=== PATIENT | male | born 1955 | race Caucasian/White ===

== ENCOUNTER 2023-02-16 17:25 | Inpatient (IN) ==
[2023-02-16] MEDS ORDERED: ONDANSETRON INJ 2 MG/ML 2 ML VIAL IV STA (17:53)
[2023-02-16] MEDS ORDERED: ONDANSETRON INJ 2 MG/ML 2 ML VIAL ONE (17:54)
[2023-02-16] MEDS ORDERED: SODIUM CHLORIDE 0.9% 1000ML 1,000 ML IV SCH (18:00)
[2023-02-16 18:40] LABS: Hematocrit (blood only) 48.5 % (42.0-52.0); Hemoglobin 17.3 g/dl (14.0-18.0); Mean Corpuscular Hemoglobin 32.3 pg (25.0-34.0); Mean Corpuscular Hgb Conc 35.7 g/dL (32.0-36.0); Mean Corpuscular Volume 90.5 fL (80.0-100.0); Mean Platelet Volume 10.1 fL (9.4-12.4); Platelet Count 89 K/uL (130-400); RDW Coefficient of Variation 11.9 % (11.5-14.5); RDW Standard Deviation 39.1 fL (36.4-46.3); Red Blood Count 5.36 M/uL (4.70-6.10); White Blood Count 19.95 K/ul (4.8-10.8)
[2023-02-16 18:49] LABS: Anion Gap 10 (3-11); BUN Creatinine Ratio 19.5 (10-20); Blood Urea Nitrogen 23 mg/dl (6-23); Calcium 9.9 mg/dl (8.5-10.1); Carbon Dioxide 24 mmol/L (21-32); Chloride 98 mmol/L (98-107); Creatinine Clr Calc Pharmacy 76.6 ml/min; Est GFR (African American) 74.6 ml/min; Est GFR (Non-African American) 64.4 ml/min; Glucose 160 mg/dl (70-99(Fasting)); Potassium 4.4 mmol/L (3.5-5.1); Sodium 132 mmol/L (136-145)
[2023-02-16 18:56] LABS: Basophils # (auto) 0.07 K/uL (0-0.2); Basophils % (auto) 0.4 %; Echinocytes 2+; Eosinophils # (auto) 0.01 K/uL (0-0.50); Eosinophils % (auto) 0.1 %; Lymphocytes # (auto) 0.42 K/uL (1.2-3.4); Lymphocytes % (auto) 2.1 %; Monocytes # (auto) 0.79 K/uL (0.11-0.59); Neutrophils # (auto) 17.46 K/uL (1.40-6.50); Neutrophils % (auto) 87.4 %; Polychromasia 1+; Tear Drop Cells 1+
[2023-02-16] MEDS ORDERED: SODIUM CHLORIDE 0.9% 1000ML 1,000 ML IV ONE (19:09)
[2023-02-16] MEDS ORDERED: FAMOTIDINE 20MG IV PUSH 20 MG/5 ML SYR IV STA (19:09)
[2023-02-16 19:21] LABS: Alanine Aminotransferase 109 U/L (7-52); Albumin Globulin Ratio 1.2 (0.9-2); Albumin Level 3.8 gm/dl (3.4-5.0); Alkaline Phosphatase 101 U/L (34-104); Aspartate Aminotransferase 62 U/L (13-39); Bilirubin,Total 1.5 mg/dl (0.2-1.0); Globulin 3.3 gm/dl (2.5-4.0); Lipase < 3 U/L (11-82); Total Protein 7.1 gm/dl (6.0-8.3)
[2023-02-16 19:49] LABS: Appearance Urine Cloudy (Clear); Bacteria Urine Automated Negative (Negative); Blood Urine Negative (Negative); Color Urine Orange; Epithelial Cell Urine Auto >30 /lpf (0-5); Glucose Urine UA Negative (Negative); Ketones Urine Trace (Negative); Leukocyte Esterase Urine Trace (Negative); Nitrite Urine Positive (Negative); Protein Urine 2+ (Negative); RBC Urine Automated 0-4 /hpf (0-4); Specific Gravity Urine 1.032 (1.000-1.030); Urobilinogen Urine Negative (Negative)
[2023-02-16] MEDS ORDERED: OPTIRAY 350 100ml IV ONE (19:51)
[2023-02-16 19:53] LABS: Bilirubin Urine 1+ (Negative)
[2023-02-16 20:04] LABS: Mucus Urine Present (None Prsent)
[2023-02-16 20:12] LABS: Magnesium 1.8 mg/dl (1.7-2.4)
[2023-02-16 20:32] LABS: Bilirubin Direct 0.3 mg/dl (0-0.2)
--- NOTE | 2023-02-16 21:07 | CT Scan Report ---
Exam(s): CT ABDOMEN + PELVIS With Contrast IV Amt: 84 ml optiray EXAM: CT Abdomen and Pelvis With Intravenous Contrast CLINICAL HISTORY: Reason for exam: abd pain, n/v. TECHNIQUE: Axial computed tomography images of the abdomen and pelvis with intravenous contrast. Automated exposure control was utilized for the study. A dose lowering technique was utilized adhering to the principles of ALARA. CONTRAST: Patient received 84 ml optiray of IV contrast COMPARISON: No relevant prior studies available. FINDINGS: Lung bases: Trace amount of subsegmental atelectasis in the right lung base. ABDOMEN: Liver: There is mild fatty infiltration of the liver. No focal liver lesion is seen. Gallbladder and bile ducts: The gallbladder is mildly dilated measuring 11 cm long axis with slight wall thickening and surrounding inflammation indicate acute cholecystitis. Pancreas: Unremarkable. No mass. No ductal dilation. Spleen: Unremarkable. No splenomegaly. Adrenals: Unremarkable. No mass. Kidneys and ureters: Simple 3 cm cyst extending off the lower pole of the left kidney. No follow-up is necessary. No hydronephrosis. Stomach and bowel: 6.5 cm of stool in the cecum suggesting mild constipation. The appendix is normal. There is diverticulosis of the left and sigmoid colon. No acute inflammatory changes are seen involving the bowel. No obstruction. No mucosal thickening. PELVIS: Appendix: See above. Bladder: The urinary bladder is mostly decompressed but otherwise unremarkable. Reproductive: Unremarkable as visualized. ABDOMEN and PELVIS: Intraperitoneal space: Unremarkable. No free air. No significant fluid collection. Bones/joints: Mild degenerative changes throughout the spine. No acute fracture or subluxation is seen. Soft tissues: Unremarkable. Vasculature: Unremarkable. No abdominal aortic aneurysm. Lymph nodes: Unremarkable. No enlarged lymph nodes. IMPRESSION: 1. The gallbladder is mildly dilated measuring 11 cm long axis with slight wall thickening and surrounding inflammation indicate acute cholecystitis. 2. 6.5 cm of stool in the cecum suggesting mild constipation. The appendix is normal. There is diverticulosis of the left and sigmoid colon. No acute inflammatory changes are seen involving the bowel. Electronically signed by: Misha Dey MD 02/16/23 21:06 PM
[2023-02-16] MEDS ORDERED: PIPERACILLIN/TAZOBACTAM 4.5 GM/120 ML BAG IV ONE (21:39)
--- NOTE | 2023-02-17 00:08 | Ultrasound Report ---
Exam(s): US GALLBLADDER EXAM: US Abdomen Limited, Gallbladder CLINICAL HISTORY: Reason for exam: abd pain eval ?cholecystitis. TECHNIQUE: Real-time ultrasound of the right upper quadrant with image documentation. COMPARISON: CT scan from February 16, 2023 FINDINGS: Liver: The liver measures 15.5 cm with mild fatty infiltration. No focal liver lesion is seen. Gallbladder: The gallbladder is mildly dilated measuring 10.4 cm long axis. There is mild wall thickening. No shadowing stones are identified. There is sludge dependently. Questionable gallstone in the gallbladder neck. Common bile duct: Obscured. Pancreas: The pancreas is mostly obscured. IMPRESSION: The gallbladder is mildly dilated measuring 10.4 cm long axis. There is mild wall thickening. No shadowing stones are identified. There is sludge dependently. Questionable gallstone in the gallbladder neck. Sonographic Mason sign could not be determined due to recent pain medication administration. Electronically signed by: Misha Dey MD 02/17/23 00:07 AM
--- NOTE | 2023-02-17 01:28 | Emergency Department Note ---
Impression & Plan Acute upper abdominal pain, Intractable nausea and vomiting, Leukocytosis, Transaminitis, Thrombocytopenia ED Provider Note NAME: [facility] AGE: 67 SEX: M ARRIVES VIA: Walk-In INFORMANT: Patient ED PROVIDER(S): Roland Seymour MD CHIEF COMPLAINT: Abdominal pain, n/v PLAN: Disposition: Admit MEDICAL DECISION MAKING: The patient is a pleasant 67-year-old gentleman with a past medical history of hypertension who presents emerged department via walk-in accompanied by his for evaluation of continued upper abdominal pain with nausea and vomiting unable to tolerate oral intake which began on Thursday. The patient reports having fevers over the past couple of days but then feels that these have dissipated and has not had a fever today. He denies any cough, congestion. He reports he has been moving his bowels normally. He denies any urinary symptoms. On arrival the patient is uncomfortable but no acute distress, afebrile with heart rate initially in the 120s but improved with IV fluids and blood pressure and vital signs otherwise stable. He appears clinically dry. He has mild upper/right upper quadrant tenderness without guarding or rebound. WBC 19.9K with neutrophil predominance and left shift. H/H 17.3/40.5 without prior values for comparison. Platelets 89K without prior values for comparison. Chemistry without metabolic acidosis. Lactic acid 1.6, within normal limits. LFTs are mildly elevated without prior values for comparison with borderline pattern for obstruction though not specific with total bilirubin 1.5, direct bilirubin 0.3, AST 62, ALT 109. However alk phos is 101. Lipase not elevated. Procalcitonin is elevated at 16.1. UA with positive nitrites but with epithelial cells present and no bacteria. COVID-19 RNA, SOBEIDA test was negative. Tickborne illness testing ordered for completeness given transaminitis and t hrombocytopenia and Lyme screen was negative. Anaplasma and Babesia smear negative. DNA test pending. CT of the abdomen pelvis was performed and demonstrates mildly dilated gallbladder with gallbladder wall thickening and pericholecystic inflammation suggestive of cholecystitis. No gallstones CT are noted. Formal gallbladder ultrasound was ordered to further characterize CT findings. Blood cultures were obtained and antibiotics ordered with IV Zosyn. Case was discussed with general surgery on-call, Dr. Jay who agrees with plan for IV antibiotics and n.p.o. and they will evaluate the patient in the morning. Case was additionally discussed with GI on-call, Dr. Hassan also concurs. [facility] for [facility]. Gallbladder ultrasound subsequently demonstrates mildly dilated gallbladder measuring 10.4 cm in long axis with mild wall thickening. No shadowing stones are seen. Sludge is present dependently with question of gallstone in the gallbladder neck though negative Mason sign. Triage Nursing notes reviewed and agree them. Prior/outside medical records reviewed Vital Signs: reviewed Differential diagnosis: Gastroenteritis, food borne illness, infections, appendicitis, diverticulitis, inflammatory bowel disease, obstruction, GI bleed, biliary pathology, volvulus, as well as other pathologies. ER treatment provided: See below. Diagnostics interpreted by me: ECG: Sinus tachycardia, 119 bpm, no ectopy, no overt ST elevation or depression, QTc 430, QRS 60. Cardiac Monitoring: An order for continuous cardiac monitoring was placed and demonstrated sinus tachycardia, 119 bpm, no ectopy. Laboratory studies: See below Imaging studies: See below Consultation(s): Dr. Jay, General surgery on-call. Dr. Hassan, GI on-call Dr. Almeida, [facility] HPI: The patient is a pleasant 67-year-old gentleman with a past medical history of hypertension who presents emerged department via walk-in accompanied by his for evaluation of continued upper abdominal pain with nausea and vomiting unable to tolerate oral intake which began on Thursday. The patient reports having fevers over the past couple of days but then feels that these have dissipated and has not had a fever today. He denies any cough, congestion. He reports he has been moving his bowels normally. He denies any urinary symptoms. ROS: See above HPI for pertinent positives & negatives. A total of 10 systems reviewed and were otherwise negative. VITALS:See Below PHYSICAL EXAMINATION: GENERAL: Awake, alert, uncomfortable-appearing, in no distress HENT: Normocephalic, atraumatic. Oropharynx with dry mucous membranes and otherwise unremarkable. EYES: Normal conjunctiva. Sclera non-icteric. NECK: Supple. No nuchal rigidity. FROM. No JVD. RESPIRATORY: Clear to auscultation. CARDIAC: Regular rate, normal rhythm. Extremities warm and well perfused. Pulses equal. ABDOMEN: Soft, non-distended. Mild upper/right upper quadrant tenderness without guarding or rebound. RECTAL: Deferred. MUSCULOSKELETAL: Chest examination reveals no tenderness. The back is symmetric al on inspection without obvious abnormality. There is no CVA tenderness to palpation. No joint edema. LOWER EXTREMITIES: Calves are equal size bilaterally and non-tender. No edema. No discoloration. NEURO: Normal sensorium. No sensory or motor deficits noted. SKIN: No rash or jaundice noted. Roland Seymour MD Past Med/Surg History Medical History (Reviewed 02/17/23 @ 01: by Roland Seymour MD) Hypertension Family History (Reviewed 02/17/23 @ 01: by Roland Seymour MD) Other Family history non-contributory Social History (Reviewed 02/17/23 @ : by Roland Seymour MD) Smoking Status: Never smoker Feels Safe at Home: Yes Allergies Allergies Allergy/AdvReac Type Severity Reaction Status Date / Time No Known Allergies Allergy Unverified 02/17/23 02:53 Home Meds Home Medications Medication Instructions Recorded Confirmed lisinopril 10 mg tablet 10 mg PO DAILY 02/16/23 02/16/23 Results & Data (ED) Vital Signs Vital Signs - 24 hr 02/16/23 17:32 02/16/23 19:18 02/16/23 20:48 Temperature 36.5 C Temperature Source Temporal Artery Scan Pulse Rate 128 H Pulse Rate [Right Finger] 121 H 111 H Respiratory Rate 20 20 20 Respiratory Effort / Characteristics Non-Labored Non-Labored Respiratory Depth Normal Normal Blood Pressure 108/73 Blood Pressure [Right Arm] 139/101 H 152/86 H Blood Pressure Mean 84 Blood Pressure Mean [Right Arm] 113 108 Pulse Oximetry 97 98 97 Oxygen Delivery Method Room Air Room Air Room Air Sepsis Recent Fever Within 48 Hours No Sepsis New/Unexplained Change in Mental Status N/A Sepsis Action Taken by Nursing No Action Required 02/16/23 21:19 02/17/23 00:45 02/16/23 20:30 Temperature Temperature Source Pulse Rate 97 H Pulse Rate [Right Finger] 112 H 100 H Respiratory Rate 20 20 Respiratory Effort / Characteristics Non-Labored Non-Labored Respiratory Depth Normal Normal Blood Pressure Blood Pressure [Right Arm] 130/77 138/82 Blood Pressure Mean Blood Pressure Mean [Right Arm] 94 100 Pulse Oximetry 97 95 Oxygen Delivery Method Room Air Room Air Sepsis Recent Fever Within 48 Hours Sepsis New/Unexplained Change in Mental Status Sepsis Action Taken by Nursing 02/17/23 02:21 02/17/23 03:41 Temperature Temperature Source Pulse Rate Pulse Rate [Right Finger] 105 H 94 H Respiratory Rate 20 19 Respiratory Effort / Characteristics Non-Labored Respiratory Depth Normal Blood Pressure Blood Pressure [Right Arm] 114/71 109/73 Blood Pressure Mean Blood Pressure Mean [Right Arm] 85 85 Pulse Oximetry 97 95 Oxygen Delivery Method Room Air Room Air Sepsis Recent Fever Within 48 Hours Sepsis New/Unexplained Change in Mental Status Sepsis Action Taken by Nursing Laboratory Data Attestation: I reviewed the patient's lab results. 02/16/23 17:54 02/16/23 17:54 Lab Results 02/16/23 02/16/23 02/16/23 Range/Units 17:54 17:54 17:54 WBC 19.95 H (4.8-10.8) K/ul RBC 5.36 (4.70-6.10) M/uL Hgb 17.3 (14.0-18.0) g/dl Hct 48.5 (42.0-52.0) % MCV 90.5 (80.0-100.0) fL MCH 32.3 (25.0-34.0) pg MCHC 35.7 (32.0-36.0) g/dL RDW Std Deviation 39.1 (36.4-46.3) fL RDW Coeff of Ann-Marie 11.9 (11.5-14.5) % Plt Count 89 L (130-400) K/uL MPV 10.1 (9.4-12.4) fL Immature Gran % (Auto) 6.0 % Neut % (Auto) 87.4 % Lymph % (Auto) 2.1 % [place] % (Auto) 4.0 % Eos % (Auto) 0.1 % Baso % (Auto) 0.4 % Neut # (Auto) 17.46 H (1.40-6.50) K/uL Lymph # (Auto) 0.42 L (1.2-3.4) K/uL [place] # (Auto) 0.79 H (0.11-0.59) K/uL Eos # (Auto) 0.01 (0-0.50) K/uL Baso # (Auto) 0.07 (0-0.2) K/uL Immature Gran # (Auto) 1.20 H (0.01-0.20) K/uL Polychromasia 1+ Tear Drop Cells 1+ Echinocytes 2+ Sodium 132 L (136-145) mmol/L Potassium 4.4 (3.5-5.1) mmol/L Chloride 98 (98-107) mmol/L Carbon Dioxide 24 (21-32) mmol/L Anion Gap 10 (3-11) BUN 23 (6-23) mg/dl Creatinine 1.18 (0.6-1.4) mg/dl Est Cr Clr Drug Dosing 76.6 ml/min Est GFR ( Amer) 74.6 ml/min Est GFR (Non-Af Amer) 64.4 ml/min BUN/Creatinine Ratio 19.5 (10-20) Glucose 160 H (70-99(Fasting)) mg/dl Lactate (0.4-2.0) mmol/L Calcium 9.9 (8.5-10.1) mg/dl Magnesium (1.7-2.4) mg/dl Total Bilirubin 1.5 H (0.2-1.0) mg/dl Direct Bilirubin (0-0.2) mg/dl AST 62 H (13-39) U/L ALT 109 H (7-52) U/L Alkaline Phosphatase 101 (34-104) U/L Total Protein 7.1 (6.0-8.3) gm/dl Albumin 3.8 (3.4-5.0) gm/dl Globulin 3.3 (2.5-4.0) gm/dl Albumin/Globulin Ratio 1.2 (0.9-2) Lipase < 3 L (11-82) U/L Procalcitonin 16.14 H (0-0.5) ng/ml Urine Color Urine Appearance (Clear) Urine pH (4.5-7.5) Ur Specific [place] (1.000-1.030) Urine Protein (Negative) Urine Glucose (UA) (Negative) Urine Ketones (Negative) Urine Blood (Negative) Urine Nitrite (Negative) Urine Bilirubin (Negative) Urine Urobilinogen (Negative) Ur Leukocyte Esterase (Negative) Urine WBC (Auto) (0-5) /hpf Urine RBC (Auto) (0-4) /hpf U Hyaline Cast (Auto) (0-5) /lpf U Epithel Cells (Auto) (0-5) /lpf Urine Bacteria (Auto) (Negative) Granular Casts (0) /lpf Urine Mucus (None Prsent) Anaplasma Smear Babesia Smear Lyme Disease IgG Ab (Negative) Lyme Disease IgM Ab (Negative) SARS-CoV-2, RNA, NAAT (NEGATIVE) 02/16/23 02/16/23 02/16/23 Range/Units 19:23 19:25 19:26 WBC (4.8-10.8) K/ul RBC (4.70-6.10) M/uL Hgb (14.0-18.0) g/dl Hct (42.0-52.0) % MCV (80.0-100.0) fL MCH (25.0-34.0) pg MCHC (32.0-36.0) g/dL RDW Std Deviation (36.4-46.3) fL RDW Coeff of Ann-Marie (11.5-14.5) % Plt Count (130-400) K/uL MPV (9.4-12.4) fL Immature Gran % (Auto) % Neut % (Auto) % Lymph % (Auto) % [place] % (Auto) % Eos % (Auto) % Baso % (Auto) % Neut # (Auto) (1.40-6.50) K/uL Lymph # (Auto) (1.2-3.4) K/uL [place] # (Auto) (0.11-0.59) K/uL Eos # (Auto) (0-0.50) K/uL Baso # (Auto) (0-0.2) K/uL Immature Gran # (Auto) (0.01-0.20) K/uL Polychromasia Tear Drop Cells Echinocytes Sodium (136-145) mmol/L Potassium (3.5-5.1) mmol/L Chloride (98-107) mmol/L Carbon Dioxide (21-32) mmol/L Anion Gap (3-11) BUN (6-23) mg/dl Creatinine (0.6-1.4) mg/dl Est Cr Clr Drug Dosing ml/min Est GFR ( Amer) ml/min Est GFR (Non-Af Amer) ml/min BUN/Creatinine Ratio (10-20) Glucose (70-99(Fasting)) mg/dl Lactate (0.4-2.0) mmol/L Calcium (8.5-10.1) mg/dl Magnesium 1.8 (1.7-2.4) mg/dl Total Bilirubin (0.2-1.0) mg/dl Direct Bilirubin 0.3 H (0-0.2) mg/dl AST (13-39) U/L ALT (7-52) U/L Alkaline Phosphatase (34-104) U/L Total Protein (6.0-8.3) gm/dl Albumin (3.4-5.0) gm/dl Globulin (2.5-4.0) gm/dl Albumin/Globulin Ratio (0.9-2) Lipase (11-82) U/L Procalcitonin (0-0.5) ng/ml Urine Color [place] Urine Appearance Cloudy A (Clear) Urine pH 5.0 (4.5-7.5) Ur Specific [place] 1.032 H (1.000-1.030) Urine Protein 2+ H (Negative) Urine Glucose (UA) Negative (Negative) Urine Ketones Trace H (Negative) Urine Blood Negative (Negative) Urine Nitrite Positive A (Negative) Urine Bilirubin 1+ H (Negative) Urine Urobilinogen Negative (Negative) Ur Leukocyte Esterase Trace H (Negative) Urine WBC (Auto) 1-5 (0-5) /hpf Urine RBC (Auto) 0-4 (0-4) /hpf U Hyaline Cast (Auto) 1-5 (0-5) /lpf U Epithel Cells (Auto) >30 H (0-5) /lpf Urine Bacteria (Auto) Negative (Negative) Granular Casts 1-5 H (0) /lpf Urine Mucus Present A (None Prsent) Anaplasma Smear Babesia Smear Lyme Disease IgG Ab (Negative) Lyme Disease IgM Ab (Negative) SARS-CoV-2, RNA, NAAT NEGATIVE (NEGATIVE) 02/16/23 02/16/23 02/16/23 Range/Units 20:02 21:53 21:53 WBC (4.8-10.8) K/ul RBC (4.70-6.10) M/uL Hgb (14.0-18.0) g/dl Hct (42.0-52.0) % MCV (80.0-100.0) fL MCH (25.0-34.0) pg MCHC (32.0-36.0) g/dL RDW Std Deviation (36.4-46.3) fL RDW Coeff of Ann-Marie (11.5-14.5) % Plt Count (130-400) K/uL MPV (9.4-12.4) fL Immature Gran % (Auto) % Neut % (Auto) % Lymph % (Auto) % [place] % (Auto) % Eos % (Auto) % Baso % (Auto) % Neut # (Auto) (1.40-6.50) K/uL Lymph # (Auto) (1.2-3.4) K/uL [place] # (Auto) (0.11-0.59) K/uL Eos # (Auto) (0-0.50) K/uL Baso # (Auto) (0-0.2) K/uL Immature Gran # (Auto) (0.01-0.20) K/uL Polychromasia Tear Drop Cells Echinocytes Sodium (136-145) mmol/L Potassium (3.5-5.1) mmol/L Chloride (98-107) mmol/L Carbon Dioxide (21-32) mmol/L Anion Gap (3-11) BUN (6-23) mg/dl Creatinine (0.6-1.4) mg/dl Est Cr Clr Drug Dosing ml/min Est GFR ( Amer) ml/min Est GFR (Non-Af Amer) ml/min BUN/Creatinine Ratio (10-20) Glucose (70-99(Fasting)) mg/dl Lactate 1.6 (0.4-2.0) mmol/L Calcium (8.5-10.1) mg/dl Magnesium (1.7-2.4) mg/dl Total Bilirubin (0.2-1.0) mg/dl Direct Bilirubin Cancelled (0-0.2) mg/dl AST (13-39) U/L ALT (7-52) U/L Alkaline Phosphatase (34-104) U/L Total Protein (6.0-8.3) gm/dl Albumin (3.4-5.0) gm/dl Globulin (2.5-4.0) gm/dl Albumin/Globulin Ratio (0.9-2) Lipase (11-82) U/L Procalcitonin (0-0.5) ng/ml Urine Color Urine Appearance (Clear) Urine pH (4.5-7.5) Ur Specific [place] (1.000-1.030) Urine Protein (Negative) Urine Glucose (UA) (Negative) Urine Ketones (Negative) Urine Blood (Negative) Urine Nitrite (Negative) Urine Bilirubin (Negative) Urine Urobilinogen (Negative) Ur Leukocyte Esterase (Negative) Urine WBC (Auto) (0-5) /hpf Urine RBC (Auto) (0-4) /hpf U Hyaline Cast (Auto) (0-5) /lpf U Epithel Cells (Auto) (0-5) /lpf Urine Bacteria (Auto) (Negative) Granular Casts (0) /lpf Urine Mucus (None Prsent) Anaplasma Smear See Comment Babesia Smear See Comment Lyme Disease IgG Ab (Negative) Lyme Disease IgM Ab (Negative) SARS-CoV-2, RNA, NAAT (NEGATIVE) 02/16/23 Range/Units 21:53 WBC (4.8-10.8) K/ul RBC (4.70-6.10) M/uL Hgb (14.0-18.0) g/dl Hct (42.0-52.0) % MCV (80.0-100.0) fL MCH (25.0-34.0) pg MCHC (32.0-36.0) g/dL RDW Std Deviation (36.4-46.3) fL RDW Coeff of Ann-Marie (11.5-14.5) % Plt Count (130-400) K/uL MPV (9.4-12.4) fL Immature Gran % (Auto) % Neut % (Auto) % Lymph % (Auto) % [place] % (Auto) % Eos % (Auto) % Baso % (Auto) % Neut # (Auto) (1.40-6.50) K/uL Lymph # (Auto) (1.2-3.4) K/uL [place] # (Auto) (0.11-0.59) K/uL Eos # (Auto) (0-0.50) K/uL Baso # (Auto) (0-0.2) K/uL Immature Gran # (Auto) (0.01-0.20) K/uL Polychromasia Tear Drop Cells Echinocytes Sodium (136-145) mmol/L Potassium (3.5-5.1) mmol/L Chloride (98-107) mmol/L Carbon Dioxide (21-32) mmol/L Anion Gap (3-11) BUN (6-23) mg/dl Creatinine (0.6-1.4) mg/dl Est Cr Clr Drug Dosing ml/min Est GFR ( Amer) ml/min Est GFR (Non-Af Amer) ml/min BUN/Creatinine Ratio (10-20) Glucose (70-99(Fasting)) mg/dl Lactate (0.4-2.0) mmol/L Calcium (8.5-10.1) mg/dl Magnesium (1.7-2.4) mg/dl Total Bilirubin (0.2-1.0) mg/dl Direct Bilirubin (0-0.2) mg/dl AST (13-39) U/L ALT (7-52) U/L Alkaline Phosphatase (34-104) U/L Total Protein (6.0-8.3) gm/dl Albumin (3.4-5.0) gm/dl Globulin (2.5-4.0) gm/dl Albumin/Globulin Ratio (0.9-2) Lipase (11-82) U/L Procalcitonin (0-0.5) ng/ml Urine Color Urine Appearance (Clear) Urine pH (4.5-7.5) Ur Specific [place] (1.000-1.030) Urine Protein (Negative) Urine Glucose (UA) (Negative) Urine Ketones (Negative) Urine Blood (Negative) Urine Nitrite (Negative) Urine Bilirubin (Negative) Urine Urobilinogen (Negative) Ur Leukocyte Esterase (Negative) Urine WBC (Auto) (0-5) /hpf Urine RBC (Auto) (0-4) /hpf U Hyaline Cast (Auto) (0-5) /lpf U Epithel Cells (Auto) (0-5) /lpf Urine Bacteria (Auto) (Negative) Granular Casts (0) /lpf Urine Mucus (None Prsent) Anaplasma Smear Babesia Smear Lyme Disease IgG Ab Negative (Negative) Lyme Disease IgM Ab Negative (Negative) SARS-CoV-2, RNA, NAAT (NEGATIVE) Administered Medications Dextrose/Sodium Chloride (D5w And Nss) 1,000 mls @ 125 mls/hr IV .Q8H CLARI Stop: 03/19/23 02:29 Last Admin: 02/17/23 02:53 Dose: 125 mls/hr Documented By: BARBRA Discontinued Medications Hydromorphone HCl (Hydromorphone Inj 0.5 Mg/0.5 Ml Syr) 0.5 mg IV NOW STA Stop: 02/17/23 02:29 Last Admin: 02/17/23 03:40 Dose: Not Given Documented By: SAES Hydromorphone HCl (Hydromorphone Inj 0.5 Mg/0.5 Ml Syr) Confirm Administered Dose 0.5 mg .ROUTE .STK-MED ONE Stop: 02/17/23 02:40 Last Admin: 02/17/23 02:40 Dose: 0.5 mg Documented By: BARBRA Sodium Chloride (Nss 1000ml) 1,000 mls @ 999 mls/hr IV .Q1H1M CLARI Stop: 02/16/23 19:00 Last Infusion: 02/16/23 19:11 Dose: 0 mls/hr Documented By: Admin: 02/16/23 17:55 Dose: 999 mls/hr Documented By: MMZ Famotidine (Pepcid 20mg Iv Push) 20 mg in 5 mls @ 2.5 mls/min IV NOW STA Stop: 02/16/23 19:10 Last Admin: 02/16/23 19:16 Dose: 2.5 mls/min Documented By: BARBRA Sodium Chloride (Nss 1000ml) 1,000 mls @ 999 mls/hr IV .Q1H1M ONE Stop: 02/16/23 20:09 Last Infusion: 02/16/23 20:23 Dose: 0 mls/hr Documented By: Admin: 02/16/23 19:17 Dose: 999 mls/hr Documented By: BARBRA Piperacillin Sod/Tazobactam Sod (Zosyn) 4.5 gm in 120 mls @ 240 mls/hr IV NOW ONE Stop: 02/16/23 22:08 Last Infusion: 02/16/23 22:57 Dose: 0 mls/hr Documented By: Admin: 02/16/23 22:20 Dose: 240 mls/hr Documented By: BARBRA Ioversol (Optiray 350 100ml) 84 ml IV ONCE ONE Stop: 02/16/23 19:52 Last Admin: 02/16/23 19:51 Dose: 84 ml Documented By: ARAM Miscellaneous Information (Patient's Allergy Info Needs Entered) 1 each N/A Q30M CLARI Stop: 03/19/23 00:59 Last Admin: 02/17/23 02:53 Dose: 1 each Documented By: Admin: 02/17/23 02:53 Dose: 1 each Documented By: Admin: 02/17/23 02:53 Dose: 1 each Documented By: Admin: 02/17/23 02:53 Dose: 1 each Documented By: BARBRA Ondansetron HCl (Ondansetron Inj 2 Mg/Ml 2 Ml Vial) 4 mg IV NOW STA Stop: 02/16/23 17:54 Last Admin: 02/16/23 17:55 Dose: 4 mg Documented By: ANT Ondansetron HCl (Ondansetron Inj 2 Mg/Ml 2 Ml Vial) Confirm Administered Dose 4 mg .ROUTE .STK-MED ONE Stop: 02/16/23 17:55 Last Admin: 02/16/23 17:57 Dose: Not Given Documented By: ANT Imaging Data Radiologist's Impression: Abdomen/Pelvis CT 02/16/23 19:09 Exam(s): CT ABDOMEN + PELVIS With Contrast IV Amt: 84 ml optiray EXAM: CT Abdomen and Pelvis With Intravenous Contrast CLINICAL HISTORY: Reason for exam: abd pain, n/v. TECHNIQUE: Axial computed tomography images of the abdomen and pelvis with intravenous contrast. Automated exposure control was utilized for the study. A dose lowering technique was utilized adhering to the principles of ALARA. CONTRAST: Patient received 84 ml optiray of IV contrast COMPARISON: No relevant prior studies available. FINDINGS: Lung bases: Trace amount of subsegmental atelectasis in the right lung base. ABDOMEN: Liver: There is mild fatty infiltration of the liver. No focal liver lesion is seen. Gallbladder and bile ducts: The gallbladder is mildly dilated measuring 11 cm long axis with slight wall thickening and surrounding inflammation indicate acute cholecystitis. Pancreas: Unremarkable. No mass. No ductal dilation. Spleen: Unremarkable. No splenomegaly. Adrenals: Unremarkable. No mass. Kidneys and ureters: Simple 3 cm cyst extending off the lower pole of the left kidney. No follow-up is necessary. No hydronephrosis. Stomach and bowel: 6.5 cm of stool in the cecum suggesting mild constipation. The appendix is normal. There is diverticulosis of the left and sigmoid colon. No acute inflammatory changes are seen involving the bowel. No obstruction. No mucosal thickening. PELVIS: Appendix: See above. Bladder: The urinary bladder is mostly decompressed but otherwise unremarkable. Reproductive: Unremarkable as visualized. ABDOMEN and PELVIS: Intraperitoneal space: Unremarkable. No free air. No significant fluid collection. Bones/joints: Mild degenerative changes throughout the spine. No acute fracture or subluxation is seen. Soft tissues: Unremarkable. Vasculature: Unremarkable. No abdominal aortic aneurysm. Lymph nodes: Unremarkable. No enlarged lymph nodes. IMPRESSION: 1. The gallbladder is mildly dilated measuring 11 cm long axis with slight wall thickening and surrounding inflammation indicate acute cholecystitis. 2. 6.5 cm of stool in the cecum suggesting mild constipation. The appendix is normal. There is diverticulosis of the left and sigmoid colon. No acute inflammatory changes are seen involving the bowel. Electronically signed by: Misha Dey MD 02/16/23 21:06 PM Gallbladder Ultrasound 02/16/23 21:41 Exam(s): US GALLBLADDER EXAM: US Abdomen Limited, Gallbladder CLINICAL HISTORY: Reason for exam: abd pain eval ?cholecystitis. TECHNIQUE: Real-time ultrasound of the right upper quadrant with image documentation. COMPARISON: CT scan from February 16, 2023 FINDINGS: Liver: The liver measures 15.5 cm with mild fatty infiltration. No focal liver lesion is seen. Gallbladder: The gallbladder is mildly dilated measuring 10.4 cm long axis. There is mild wall thickening. No shadowing stones are identified. There is sludge dependently. Questionable gallstone in the gallbladder neck. Common bile duct: Obscured. Pancreas: The pancreas is mostly obscured. IMPRESSION: The gallbladder is mildly dilated measuring 10.4 cm long axis. There is mild wall thickening. No shadowing stones are identified. There is sludge dependently. Questionable gallstone in the gallbladder neck. Sonographic Mason sign could not be determined due to recent pain medication administration. Electronically signed by: Misha Dey MD 02/17/23 00:07 AM Discharge Plan Visit Data Chief Complaint: GI Assessment Stated Complaint: GALL BLADDER ATTACK,REF BY DOC ED Provider: Roland Seymour Discharge Problem: Acute upper abdominal pain, Intractable nausea and vomiting, Leukocytosis, Transaminitis, Thrombocytopenia Forms Stand Alone Forms: My [facility] Prescriptions Prescriptions: No Action lisinopril 10 mg tablet 10 mg PO DAILY Referrals Referrals: Grover Hensley [Primary Care Provider] -
[2023-02-17] MEDS ORDERED: HYDROmorphone INJ 0.5 MG/0.5 ML SYR IV STA (02:28)
[2023-02-17] MEDS ORDERED: HYDROmorphone INJ 0.5 MG/0.5 ML SYR ONE (02:39)
[2023-02-17] MEDS: D5W AND NSS 1,000 ML IV SCH ×2 (02:53→10:59)
[2023-02-17] MEDS: Patient's ALLERGY Info needs ENTERED SCH (02:53)
[2023-02-17 02:59] LABS: Lyme Ab IgG w/WB Rflx Negative (Negative); Lyme Ab IgM w/WB Rflx Negative (Negative)
--- NOTE | 2023-02-17 03:23 | History and Physical Report ---
DATE OF ADMISSION: 02/16/2023. CHIEF COMPLAINT: Abdominal pain. HISTORY OF PRESENT ILLNESS: A 67-year-old male with past medical history significant for hypertension, comes with abdominal pain going on since last Thursday afternoon. It is 10/10 in severity, associated with nausea, vomiting, has some fever and in the ER, found to have cholecystitis. Currently, resting comfortably, requesting for pain medication, hemodynamically stable. Denies any chest pain, no shortness of breath, no cough, no headache, no earache, no runny nose. Normal bowel and bladder movements. ALLERGIES: POLLEN. PAST MEDICAL HISTORY: As mentioned above. PAST SURGICAL HISTORY: Bilateral knee arthroplasty, colonoscopy, right shoulder lap for calcinosis and tendinitis, tonsillectomy, repair of bilateral knee cartilage, left foot surgery. MEDICATIONS: The patient is on lisinopril 10 mg p.o. daily. FAMILY HISTORY: Significant for mother has diverticulitis; maternal grandmother has gallbladder disease, diverticulitis; father had lung cancer; maternal grandfather had lung cancer; paternal grandfather had lung cancer; paternal grandmother had stroke. SOCIAL HISTORY: , no smoking. Alcohol, 2 drinks a month. No drug use. REVIEW OF SYSTEMS: As per HPI. Rest of the review of systems is negative. PHYSICAL EXAMINATION: GENERAL: The patient is obese, not in acute distress. VITAL SIGNS: Temperature 36.5, pulse 105, respiratory rate 20, blood pressure 114/71, oxygen 97% on room air. HEENT: Pupils equal, round and reactive to light. Oral mucosa moist. NECK: No JVD or neck masses. CARDIOVASCULAR: S1 and S2 heard. Regular rate and rhythm. No murmur, no gallop. RESPIRATORY SYSTEM: Normal AP diameter. No accessory muscle use. No wheezing, no crackles. ABDOMEN: Soft, bowel sounds present. Tenderness in right upper quadrant region. No guarding, no rigidity, no distention. CENTRAL NERVOUS SYSTEM: Cranial nerves II-XII grossly intact, nonfocal. EXTREMITIES: No edema, no erythema. LABORATORY DATA: WBC 19, hemoglobin 17.3, hematocrit 48.5, platelets 89. Sodium 132, potassium 4.4, chloride 98, CO2 of 24, BUN 23, creatinine 1.1, serum glucose 160. Lactate 1.6, calcium 9.9, magnesium 1.8, total bilirubin 1.5, direct bilirubin 0.3, AST 62, ALT 109, alkaline phosphatase 101. Lipase is less than 3. Procalcitonin 16.14. Urinalysis positive for nitrite. Anaplasma and Lyme screen pending. SARS-CoV-2 rapid test negative. IMAGING DATA: Gallbladder ultrasound: The gallbladder is mildly dilated measuring 10.4 cm long axis. There is mild wall thickening. No shadowing stones are identified. There is sludge dependently. Questionable gallstone in the gallbladder neck. Sonographic Mason sign could not be determined due to recent pain medication administration. CT abdomen and pelvis with IV contrast shows gallbladder is mildly dilated measuring 11 cm long axis with slight wall thickening and surrounding inflammation indicate acute cholecystitis, mild constipation, diverticulosis. EKG: Sinus tachycardia at a rate of 119, possible left atrial enlargement, nonspecific T-wave abnormalities. ASSESSMENT AND PLAN: This is a 67-year-old male who presents with abdominal pain and found to have possible acute cholecystitis. 1. Abdominal pain, possible acute cholecystitis seen on CT scan, possible gallbladder neck stone on the ultrasound imaging and the patient also has elevated LFTs, total bilirubin 1.5, direct bilirubin 0.3, AST 62, ALT 109, alkaline phosphatase 101. ER talked to Surgery and GI, recommended p.o. antibiotics and NPO for now. The patient received IV Zosyn, which will be continued. Keep him n.p.o., IV fluids, IV Dilaudid p.r.n., IV antiemetics. Consult Surgery and GI and closely monitor in the medical floor. Follow the repeat labs. Follow repeat LFTs. 2. The patient has thrombocytopenia, 89 .platelets of 113 in June of 2020 as per Epic. ER ordered Lyme screen and anaplasma screen, which we will follow. We will follow the repeat labs, may need to follow outpatient. 3. Possible urinary tract infection. Antibiotics Zosyn. We will follow the cultures. 4. History of hypertension. We will hold the lisinopril. Place him on IV hydralazine p.r.n. for now. 5. Deep venous thrombosis prophylaxis. SCDs. DISPOSITION: Closely monitor in the medical floor. Expect to discharge home and follow with family doctor. Job ID: [id number] [facility]
[2023-02-17] MEDS ORDERED: hydrALAZINE HCL 20 MG/ML VIAL IV PRN (04:30)
[2023-02-17] MEDS ORDERED: ONDANSETRON INJ 2 MG/ML 2 ML VIAL IV PRN ×2 (04:30→15:30)
[2023-02-17] MEDS: PIPERACILLIN/TAZOBACTAM 3.375 GM in DEXTROSE 5% 100 ML IV SCH ×2 (05:16→13:22)
[2023-02-17 06:42] LABS: Basophils # (auto) 0.02 K/uL (0-0.2); Basophils % (auto) 0.1 %; Hematocrit (blood only) 39.3 % (42.0-52.0); Hemoglobin 13.9 g/dl (14.0-18.0); Immature Granulocytes # (auto) 0.37 K/uL (0.01-0.20); Immature Granulocytes % (auto) 2.4 %; Lymphocytes # (auto) 0.63 K/uL (1.2-3.4); Lymphocytes % (auto) 4.1 %; Mean Corpuscular Hemoglobin 32.1 pg (25.0-34.0); Mean Corpuscular Hgb Conc 35.4 g/dL (32.0-36.0); Mean Corpuscular Volume 90.8 fL (80.0-100.0); Mean Platelet Volume 10.6 fL (9.4-12.4); Monocytes # (auto) 0.86 K/uL (0.11-0.59); Monocytes % (auto) 5.7 %; Neutrophils # (auto) 13.34 K/uL (1.40-6.50); Neutrophils % (auto) 87.7 %; Platelet Count 89 K/uL (130-400); RDW Coefficient of Variation 11.9 % (11.5-14.5); RDW Standard Deviation 39.9 fL (36.4-46.3); Red Blood Count 4.33 M/uL (4.70-6.10); White Blood Count 15.22 K/ul (4.8-10.8)
[2023-02-17 06:51] LABS: BUN Creatinine Ratio 21.6 (10-20); Bilirubin Direct 0.3 mg/dl (0-0.2); Calcium 8.2 mg/dl (8.5-10.1); Creatinine Clr Calc Pharmacy 88.2 ml/min; Est GFR (Non-African American) 76.8 ml/min; Magnesium 1.9 mg/dl (1.7-2.4); Potassium 3.9 mmol/L (3.5-5.1); Total Protein 5.5 gm/dl (6.0-8.3)
--- NOTE | 2023-02-17 07:31 | XRay Report ---
XR chest 1V portable HISTORY: 67 years-old Male ap, n/v acute chest pain with nausea and vomiting COMPARISON: CT abdomen and pelvis 02/16/2023 TECHNIQUE: AP view of the chest FINDINGS: Cardiac silhouette is moderately enlarged. Mild right hemidiaphragmatic elevation. Mild subsegmental bibasilar atelectasis. No pneumothorax, large pleural effusion or lobar airspace consolidation. Bones appear grossly intact. IMPRESSION: Cardiomegaly without acute process. ACT 112: Negative or not required by law. The above report was generated using voice recognition software. It may contain grammatical, syntax o r spelling errors. Electronically signed by: Devin Castellano M.D. 02/17/2023 7:29 AM
[2023-02-17] MEDS: HYDROmorphone INJ 0.5 MG/0.5 ML SYR IV PRN ×3 (08:43→23:38)
--- NOTE | 2023-02-17 10:52 | Electrocardiogram Report ---
Test Reason : Blood Pressure : / mmHG Vent. Rate : 119 BPM Atrial Rate : 119 BPM P-R Int : 144 ms QRS Dur : 068 ms QT Int : 306 ms P-R-T Axes : 022 048 018 degrees QTc Int : 430 ms Poor data quality, interpretation may be adversely affected Sinus tachycardia Possible Left atrial enlargement Borderline ECG When compared with ECG of 06-DEC-2018 10:19, Vent. rate has increased BY 44 BPM Nonspecific T wave abnormality now evident in Inferior leads Confirmed by Levon Hopkins ([id number]) on 02/17/2023 10:52:02 AM Referred By: REFERRED SELF Confirmed By:Cristian Hopkins
--- NOTE | 2023-02-17 10:58 | Surgery Consultation ---
Date of Consultation February 17, 2023 Assessment & Plan (1) Acute upper abdominal pain: (2) Acute cholecystitis: Plan 67 year-old male with 3 day history of RUQ abdominal pain with associated nausea, vomiting, and fever. Ultrasound showing dilated gallbladder and possible gallbladder neck stone. CT scan showing dilated gallbladder with wall thickening and surrounding fluid concerning for acute cholecystitis. Leukocytosis 19k on presentation. T. bili slightly elevated at 1.5 but now normalized. LFts slightly elevated but almost normalized today. Tenderness in RUQ ond deep palpation of RUQ. Plan: Discussed with patient imaging and laboratory findings concerning for acute c holecystitis. Discussed laparoscopic cholecystectomy and risks of procedure and expected recovery time. Will add him on to OR today for lap lexi this afternoon Continue IV abx Continue pain management as needed Continue medical management NPO Discussed with Dr. spears who agrees with above and will see patient preoperatively and obtain informed consent. Supervising Physician Co-Signing Physician Notes I have seen and examined the patient and agree with the above assessment and plan. He has acute cholecystitis. He is on antibiotics. I discussed the risks and benefits of laparoscopic cholecystectomy with him. He is agreeable to proceed. We will take him to the operating room at the earliest convenience. H e will continue antibiotics for now. History of Present Illness Reason for Consultation: Acute calculous cholecysitis Requesting Physician: Dr. Almeida Attending Physician: Jeffrey Dugan MD History of Present Illness Mr. parks is a pleasant 67 year-old male who presented to emergency department with complaint of RUQ abdominal pain that progressively worsened which started around noon on Thursday after eating lunch. States he had associated nausea, vomiting, and fever on Thursday. Pain slightly improved Thursday evening and then increased in severity again Thursday. Denies of any similar episodes in past. Denies of any chest pain, shortness of breath, changes in bowel habits, diarrhea, constipation, blood in stools, melena, acholic stools, difficulty urinating. No prior abdominal surgeries. No blood thinning agents. Allergies Allergy/AdvReac Type Severity Reaction Status Date / Time tramadol AdvReac Severe Verified 02/17/23 08:50 Home Medications Medication Instructions Recorded Confirmed Type lisinopril 10 mg tablet 10 mg PO DAILY 02/16/23 02/16/23 History magnesium citrate 100 mg tablet 400 mg PO DAILY 02/17/23 02/17/23 History omeprazole 20 mg capsule,delayed 20 mg PO DAILY 02/17/23 02/17/23 History release Patient History Medical History (Updated 02/17/23 @ 13:01 by Regine Treviño PA-C) Hypertension Surgical History (Updated 02/17/23 @ 08:52 by Regine Treviño PA-C) Hx of foot surgery Hx of rotator cuff surgery Hx of total knee replacement Family History Other Family history non-contributory Social History Smoking Status: Former smoker Cigarettes Per Day: chew tobacco; Smoking End Date: 1989; Hx Alcohol Use: Yes Alcohol type: beer Hx Substance Use: No Preferred Language: Botswanan Communication Ability: Effective 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 Beliefs That Will Affect Care: None Current Living Situation: Spouse Current Living Situation Comment: Lives at home with Other Information That Helps Us Care for You: No Feels Safe at Home: Yes Safety Concerns: Feels Safe At This Time Assistive Devices: None Physical Exam Constitutional: WD/WN, vitals as above + obese and cooperative; no acute distress, not ill appearing and not in distress Respiratory: normal respiratory effort, lungs clear to auscultation Cardiovascular: RRR, no murmur, no edema Gastrointestinal (Abdomen): Inspection/Auscultation: abdomen normal to inspection, + abdomen distended (moderate) and + hypoactive bowel sounds; + abnormal bowel sounds Percussion/Palpation: + abdomen tender (RUQ on deep palpation) and abdomen soft; no guarding and abdomen not rigid Skin: no rashes, warm and dry no jaundice Psychiatric: A+Ox3, euthymic affect Results & Data Vital Signs (Past 12 Hours) Vital Signs Temp Pulse Resp BP Pulse Ox O2 Del Method 02/17/23 09:42 Room Air 02/17/23 07:28 36.9 C 94 H 16 143/84 H 96 Room Air 02/17/23 04:20 37.0 C 95 H 16 130/80 98 Room Air 02/17/23 03:41 94 H 19 109/73 95 Room Air 02/17/23 02:21 105 H 20 114/71 97 Room Air 02/17/23 00:45 100 H 20 138/82 95 Room Air Laboratory Results 02/17/23 02/17/23 02/17/23 Range/Units 05:51 05:51 05:51 WBC 15.22 H (4.8-10.8) K/ul RBC 4.33 L (4.70-6.10) M/uL Hgb 13.9 L D (14.0-18.0) g/dl Hct 39.3 L (42.0-52.0) % MCV 90.8 (80.0-100.0) fL MCH 32.1 (25.0-34.0) pg MCHC 35.4 (32.0-36.0) g/dL RDW Std Deviation 39.9 (36.4-46.3) fL RDW Coeff of Ann-Marie 11.9 (11.5-14.5) % Plt Count 89 L (130-400) K/uL MPV 10.6 (9.4-12.4) fL Immature Gran % (Auto) 2.4 % Neut % (Auto) 87.7 % Lymph % (Auto) 4.1 % Frederick % (Auto) 5.7 % Eos % (Auto) 0.0 % Baso % (Auto) 0.1 % Neut # (Auto) 13.34 H (1.40-6.50) K/uL Lymph # (Auto) 0.63 L (1.2-3.4) K/uL Frederick # (Auto) 0.86 H (0.11-0.59) K/uL Eos # (Auto) 0.00 (0-0.50) K/uL Baso # (Auto) 0.02 (0-0.2) K/uL Immature Gran # (Auto) 0.37 H (0.01-0.20) K/uL Polychromasia Tear Drop Cells Echinocytes Sodium 134 L (136-145) mmol/L Potassium 3.9 (3.5-5.1) mmol/L Chloride 104 (98-107) mmol/L Carbon Dioxide 25 (21-32) mmol/L Anion Gap 5 (3-11) BUN 22 (6-23) mg/dl Creatinine 1.02 (0.6-1.4) mg/dl Est Cr Clr Drug Dosing 88.2 ml/min Est GFR ( Amer) 89.0 ml/min Est GFR (Non-Af Amer) 76.8 ml/min BUN/Creatinine Ratio 21.6 H (10-20) Glucose 135 H (70-99(Fasting)) mg/dl Lactate (0.4-2.0) mmol/L Calcium 8.2 L (8.5-10.1) mg/dl Magnesium 1.9 (1.7-2.4) mg/dl Total Bilirubin 1.0 D (0.2-1.0) mg/dl Direct Bilirubin 0.3 H (0-0.2) mg/dl AST 34 (13-39) U/L ALT 64 H (7-52) U/L Alkaline Phosphatase 81 (34-104) U/L Total Protein 5.5 L D (6.0-8.3) gm/dl Albumin 3.0 L (3.4-5.0) gm/dl Globulin (2.5-4.0) gm/dl Albumin/Globulin Ratio (0.9-2) Lipase (11-82) U/L Procalcitonin (0-0.5) ng/ml Urine Color Urine Appearance (Clear) Urine pH (4.5-7.5) Ur Specific [place] (1.000-1.030) Urine Protein (Negative) Urine Glucose (UA) (Negative) Urine Ketones (Negative) Urine Blood (Negative) Urine Nitrite (Negative) Urine Bilirubin (Negative) Urine Urobilinogen (Negative) Ur Leukocyte Esterase (Negative) Urine WBC (Auto) (0-5) /hpf Urine RBC (Auto) (0-4) /hpf U Hyaline Cast (Auto) (0-5) /lpf U Epithel Cells (Auto) (0-5) /lpf Urine Bacteria (Auto) (Negative) Granular Casts (0) /lpf Urine Mucus (None Prsent) Anaplasma Smear A. phagocytophilum DNA Babesia Smear Babesia microti DNA PCR Pending Lyme Disease IgG Ab (Negative) Lyme Disease IgM Ab (Negative) SARS-CoV-2, RNA, NAAT (NEGATIVE) 02/17/23 02/16/23 02/16/23 Range/Units 05:51 21:53 21:53 WBC (4.8-10.8) K/ul RBC (4.70-6.10) M/uL Hgb (14.0-18.0) g/dl Hct (42.0-52.0) % MCV (80.0-100.0) fL MCH (25.0-34.0) pg MCHC (32.0-36.0) g/dL RDW Std Deviation (36.4-46.3) fL RDW Coeff of Ann-Marie (11.5-14.5) % Plt Count (130-400) K/uL MPV (9.4-12.4) fL Immature Gran % (Auto) % Neut % (Auto) % Lymph % (Auto) % Frederick % (Auto) % Eos % (Auto) % Baso % (Auto) % Neut # (Auto) (1.40-6.50) K/uL Lymph # (Auto) (1.2-3.4) K/uL Frederick # (Auto) (0.11-0.59) K/uL Eos # (Auto) (0-0.50) K/uL Baso # (Auto) (0-0.2) K/uL Immature Gran # (Auto) (0.01-0.20) K/uL Polychromasia Tear Drop Cells Echinocytes Sodium (136-145) mmol/L Potassium (3.5-5.1) mmol/L Chloride (98-107) mmol/L Carbon Dioxide (21-32) mmol/L Anion Gap (3-11) BUN (6-23) mg/dl Creatinine (0.6-1.4) mg/dl Est Cr Clr Drug Dosing ml/min Est GFR ( Amer) ml/min Est GFR (Non-Af Amer) ml/min BUN/Creatinine Ratio (10-20) Glucose (70-99(Fasting)) mg/dl Lactate (0.4-2.0) mmol/L Calcium (8.5-10.1) mg/dl Magnesium (1.7-2.4) mg/dl Total Bilirubin (0.2-1.0) mg/dl Direct Bilirubin (0-0.2) mg/dl AST (13-39) U/L ALT (7-52) U/L Alkaline Phosphatase (34-104) U/L Total Protein (6.0-8.3) gm/dl Albumin (3.4-5.0) gm/dl Globulin (2.5-4.0) gm/dl Albumin/Globulin Ratio (0.9-2) Lipase (11-82) U/L Procalcitonin (0-0.5) ng/ml Urine Color Urine Appearance (Clear) Urine pH (4.5-7.5) Ur Specific [place] (1.000-1.030) Urine Protein (Negative) Urine Glucose (UA) (Negative) Urine Ketones (Negative) Urine Blood (Negative) Urine Nitrite (Negative) Urine Bilirubin (Negative) Urine Urobilinogen (Negative) Ur Leukocyte Esterase (Negative) Urine WBC (Auto) (0-5) /hpf Urine RBC (Auto) (0-4) /hpf U Hyaline Cast (Auto) (0-5) /lpf U Epithel Cells (Auto) (0-5) /lpf Urine Bacteria (Auto) (Negative) Granular Casts (0) /lpf Urine Mucus (None Prsent) Anaplasma Smear See Comment A. phagocytophilum DNA Pending Babesia Smear See Comment Babesia microti DNA PCR Lyme Disease IgG Ab Negative (Negative) Lyme Disease IgM Ab Negative (Negative) SARS-CoV-2, RNA, NAAT (NEGATIVE) 02/16/23 02/16/23 02/16/23 Range/Units 21:53 20:02 19:26 WBC (4.8-10.8) K/ul RBC (4.70-6.10) M/uL Hgb (14.0-18.0) g/dl Hct (42.0-52.0) % MCV (80.0-100.0) fL MCH (25.0-34.0) pg MCHC (32.0-36.0) g/dL RDW Std Deviation (36.4-46.3) fL RDW Coeff of Ann-Marie (11.5-14.5) % Plt Count (130-400) K/uL MPV (9.4-12.4) fL Immature Gran % (Auto) % Neut % (Auto) % Lymph % (Auto) % Frederick % (Auto) % Eos % (Auto) % Baso % (Auto) % Neut # (Auto) (1.40-6.50) K/uL Lymph # (Auto) (1.2-3.4) K/uL Frederick # (Auto) (0.11-0.59) K/uL Eos # (Auto) (0-0.50) K/uL Baso # (Auto) (0-0.2) K/uL Immature Gran # (Auto) (0.01-0.20) K/uL Polychromasia Tear Drop Cells Echinocytes Sodium (136-145) mmol/L Potassium (3.5-5.1) mmol/L Chloride (98-107) mmol/L Carbon Dioxide (21-32) mmol/L Anion Gap (3-11) BUN (6-23) mg/dl Creatinine (0.6-1.4) mg/dl Est Cr Clr Drug Dosing ml/min Est GFR ( Amer) ml/min Est GFR (Non-Af Amer) ml/min BUN/Creatinine Ratio (10-20) Glucose (70-99(Fasting)) mg/dl Lactate 1.6 (0.4-2.0) mmol/L Calcium (8.5-10.1) mg/dl Magnesium (1.7-2.4) mg/dl Total Bilirubin (0.2-1.0) mg/dl Direct Bilirubin Cancelled (0-0.2) mg/dl AST (13-39) U/L ALT (7-52) U/L Alkaline Phosphatase (34-104) U/L Total Protein (6.0-8.3) gm/dl Albumin (3.4-5.0) gm/dl Globulin (2.5-4.0) gm/dl Albumin/Globulin Ratio (0.9-2) Lipase (11-82) U/L Procalcitonin (0-0.5) ng/ml Urine Color Bennett Urine Appearance Cloudy A (Clear) Urine pH 5.0 (4.5-7.5) Ur Specific [place] 1.032 H (1.000-1.030) Urine Protein 2+ H (Negative) Urine Glucose (UA) Negative (Negative) Urine Ketones Trace H (Negative) Urine Blood Negative (Negative) Urine Nitrite Positive A (Negative) Urine Bilirubin 1+ H (Negative) Urine Urobilinogen Negative (Negative) Ur Leukocyte Esterase Trace H (Negative) Urine WBC (Auto) 1-5 (0-5) /hpf Urine RBC (Auto) 0-4 (0-4) /hpf U Hyaline Cast (Auto) 1-5 (0-5) /lpf U Epithel Cells (Auto) >30 H (0-5) /lpf Urine Bacteria (Auto) Negative (Negative) Granular Casts 1-5 H (0) /lpf Urine Mucus Present A (None Prsent) Anaplasma Smear A. phagocytophilum DNA Babesia Smear Babesia microti DNA PCR Lyme Disease IgG Ab (Negative) Lyme Disease IgM Ab (Negative) SARS-CoV-2, RNA, NAAT (NEGATIVE) 02/16/23 02/16/23 02/16/23 Range/Units 19:25 19:23 17:54 WBC (4.8-10.8) K/ul RBC (4.70-6.10) M/uL Hgb (14.0-18.0) g/dl Hct (42.0-52.0) % MCV (80.0-100.0) fL MCH (25.0-34.0) pg MCHC (32.0-36.0) g/dL RDW Std Deviation (36.4-46.3) fL RDW Coeff of Ann-Marie (11.5-14.5) % Plt Count (130-400) K/uL MPV (9.4-12.4) fL Immature Gran % (Auto) % Neut % (Auto) % Lymph % (Auto) % Frederick % (Auto) % Eos % (Auto) % Baso % (Auto) % Neut # (Auto) (1.40-6.50) K/uL Lymph # (Auto) (1.2-3.4) K/uL Frederick # (Auto) (0.11-0.59) K/uL Eos # (Auto) (0-0.50) K/uL Baso # (Auto) (0-0.2) K/uL Immature Gran # (Auto) (0.01-0.20) K/uL Polychromasia Tear Drop Cells Echinocytes Sodium (136-145) mmol/L Potassium (3.5-5.1) mmol/L Chloride (98-107) mmol/L Carbon Dioxide (21-32) mmol/L Anion Gap (3-11) BUN (6-23) mg/dl Creatinine (0.6-1.4) mg/dl Est Cr Clr Drug Dosing ml/min Est GFR ( Amer) ml/min Est GFR (Non-Af Amer) ml/min BUN/Creatinine Ratio (10-20) Glucose (70-99(Fasting)) mg/dl Lactate (0.4-2.0) mmol/L Calcium (8.5-10.1) mg/dl Magnesium 1.8 (1.7-2.4) mg/dl Total Bilirubin (0.2-1.0) mg/dl Direct Bilirubin 0.3 H (0-0.2) mg/dl AST (13-39) U/L ALT (7-52) U/L Alkaline Phosphatase (34-104) U/L Total Protein (6.0-8.3) gm/dl Albumin (3.4-5.0) gm/dl Globulin (2.5-4.0) gm/dl Albumin/Globulin Ratio (0.9-2) Lipase (11-82) U/L Procalcitonin 16.14 H (0-0.5) ng/ml Urine Color Urine Appearance (Clear) Urine pH (4.5-7.5) Ur Specific [place] (1.000-1.030) Urine Protein (Negative) Urine Glucose (UA) (Negative) Urine Ketones (Negative) Urine Blood (Negative) Urine Nitrite (Negative) Urine Bilirubin (Negative) Urine Urobilinogen (Negative) Ur Leukocyte Esterase (Negative) Urine WBC (Auto) (0-5) /hpf Urine RBC (Auto) (0-4) /hpf U Hyaline Cast (Auto) (0-5) /lpf U Epithel Cells (Auto) (0-5) /lpf Urine Bacteria (Auto) (Negative) Granular Casts (0) /lpf Urine Mucus (None Prsent) Anaplasma Smear A. phagocytophilum DNA Babesia Smear Babesia microti DNA PCR Lyme Disease IgG Ab (Negative) Lyme Disease IgM Ab (Negative) SARS-CoV-2, RNA, NAAT NEGATIVE (NEGATIVE) 02/16/23 02/16/23 Range/Units 17:54 17:54 WBC 19.95 H (4.8-10.8) K/ul RBC 5.36 (4.70-6.10) M/uL Hgb 17.3 (14.0-18.0) g/dl Hct 48.5 (42.0-52.0) % MCV 90.5 (80.0-100.0) fL MCH 32.3 (25.0-34.0) pg MCHC 35.7 (32.0-36.0) g/dL RDW Std Deviation 39.1 (36.4-46.3) fL RDW Coeff of Ann-Marie 11.9 (11.5-14.5) % Plt Count 89 L (130-400) K/uL MPV 10.1 (9.4-12.4) fL Immature Gran % (Auto) 6.0 % Neut % (Auto) 87.4 % Lymph % (Auto) 2.1 % Frederick % (Auto) 4.0 % Eos % (Auto) 0.1 % Baso % (Auto) 0.4 % Neut # (Auto) 17.46 H (1.40-6.50) K/uL Lymph # (Auto) 0.42 L (1.2-3.4) K/uL Frederick # (Auto) 0.79 H (0.11-0.59) K/uL Eos # (Auto) 0.01 (0-0.50) K/uL Baso # (Auto) 0.07 (0-0.2) K/uL Immature Gran # (Auto) 1.20 H (0.01-0.20) K/uL Polychromasia 1+ Tear Drop Cells 1+ Echinocytes 2+ Sodium 132 L (136-145) mmol/L Potassium 4.4 (3.5-5.1) mmol/L Chloride 98 (98-107) mmol/L Carbon Dioxide 24 (21-32) mmol/L Anion Gap 10 (3-11) BUN 23 (6-23) mg/dl Creatinine 1.18 (0.6-1.4) mg/dl Est Cr Clr Drug Dosing 76.6 ml/min Est GFR ( Amer) 74.6 ml/min Est GFR (Non-Af Amer) 64.4 ml/min BUN/Creatinine Ratio 19.5 (10-20) Glucose 160 H (70-99(Fasting)) mg/dl Lactate (0.4-2.0) mmol/L Calcium 9.9 (8.5-10.1) mg/dl Magnesium (1.7-2.4) mg/dl Total Bilirubin 1.5 H (0.2-1.0) mg/dl Direct Bilirubin (0-0.2) mg/dl AST 62 H (13-39) U/L ALT 109 H (7-52) U/L Alkaline Phosphatase 101 (34-104) U/L Total Protein 7.1 (6.0-8.3) gm/dl Albumin 3.8 (3.4-5.0) gm/dl Globulin 3.3 (2.5-4.0) gm/dl Albumin/Globulin Ratio 1.2 (0.9-2) Lipase < 3 L (11-82) U/L Procalcitonin (0-0.5) ng/ml Urine Color Urine Appearance (Clear) Urine pH (4.5-7.5) Ur Specific [place] (1.000-1.030) Urine Protein (Negative) Urine Glucose (UA) (Negative) Urine Ketones (Negative) Urine Blood (Negative) Urine Nitrite (Negative) Urine Bilirubin (Negative) Urine Urobilinogen (Negative) Ur Leukocyte Esterase (Negative) Urine WBC (Auto) (0-5) /hpf Urine RBC (Auto) (0-4) /hpf U Hyaline Cast (Auto) (0-5) /lpf U Epithel Cells (Auto) (0-5) /lpf Urine Bacteria (Auto) (Negative) Granular Casts (0) /lpf Urine Mucus (None Prsent) Anaplasma Smear A. phagocytophilum DNA Babesia Smear Babesia microti DNA PCR Lyme Disease IgG Ab (Negative) Lyme Disease IgM Ab (Negative) SARS-CoV-2, RNA, NAAT (NEGATIVE) Diagnostic Findings Exam(s): US GALLBLADDER EXAM: US Abdomen Limited, Gallbladder CLINICAL HISTORY: Reason for exam: abd pain eval ?cholecystitis. TECHNIQUE: Real-time ultrasound of the right upper quadrant with image documentation. COMPARISON: CT scan from February 16, 2023 FINDINGS: Liver: The liver measures 15.5 cm with mild fatty infiltration. No focal liver lesion is seen. Gallbladder: The gallbladder is mildly dilated measuring 10.4 cm long axis. There is mild wall thickening. No shadowing stones are identified. There is sludge dependently. Questionable gallstone in the gallbladder neck. Common bile duct: Obscured. Pancreas: The pancreas is mostly obscured. IMPRESSION: The gallbladder is mildly dilated measuring 10.4 cm long axis. There is mild wall thickening. No shadowing stones are identified. There is sludge dependently. Questionable gallstone in the gallbladder neck. Sonographic Mason sign could not be determined due to recent pain medication administration. Exam(s): CT ABDOMEN + PELVIS With Contrast IV Amt: 84 ml optiray EXAM: CT Abdomen and Pelvis With Intravenous Contrast CLINICAL HISTORY: Reason for exam: abd pain, n/v. TECHNIQUE: Axial computed tomography images of the abdomen and pelvis with intravenous contrast. Automated exposure control was utilized for the study. A dose lowering technique was utilized adhering to the principles of ALARA. CONTRAST: Patient received 84 ml optiray of IV contrast COMPARISON: No relevant prior studies available. FINDINGS: Lung bases: Trace amount of subsegmental atelectasis in the right lung base. ABDOMEN: Liver: There is mild fatty infiltration of the liver. No focal liver lesion is seen. Gallbladder and bile ducts: The gallbladder is mildly dilated measuring 11 cm long axis with slight wall thickening and surrounding inflammation indicate acute cholecystitis. Pancreas: Unremarkable. No mass. No ductal dilation. Spleen: Unremarkable. No splenomegaly. Adrenals: Unremarkable. No mass. Kidneys and ureters: Simple 3 cm cyst extending off the lower pole of the left kidney. No follow-up is necessary. No hydronephrosis. Stomach and bowel: 6.5 cm of stool in the cecum suggesting mild constipation. The appendix is normal. There is diverticulosis of the left and sigmoid colon. No acute inflammatory changes are seen involving the bowel. No obstruction. No mucosal thickening. PELVIS: Appendix: See above. Bladder: The urinary bladder is mostly decompressed but otherwise unremarkable. Reproductive: Unremarkable as visualized. ABDOMEN and PELVIS: Intraperitoneal space: Unremarkable. No free air. No significant fluid collection. Bones/joints: Mild degenerative changes throughout the spine. No acute fracture or subluxation is seen. Soft tissues: Unremarkable. Vasculature: Unremarkable. No abdominal aortic aneurysm. Lymph nodes: Unremarkable. No enlarged lymph nodes. IMPRESSION: 1. The gallbladder is mildly dilated measuring 11 cm long axis with slight wall thickening and surrounding inflammation indicate acute cholecystitis. 2. 6.5 cm of stool in the cecum suggesting mild constipation. The appendix is normal. There is diverticulosis of the left and sigmoid colon. No acute inflammatory changes are seen involving the bowel.
--- NOTE | 2023-02-17 11:51 | Gastrointestinal Consultation ---
Date of Consultation February 17, 2023 Assessment & Plan (1) Acute cholecystitis: (2) Transaminitis: Patient is a 67 years old male who presented with right upper quadrant abdominal pain, associated with nausea and vomiting. Abdominal imaging studies with CT and ultrasound showed signs of cholecystitis and questionable gallbladder neck stone. LFTs are fairly unremarkable, also normal lipase. He is scheduled to undergo cholecystectomy this afternoon in the OR. We are not planning on performing an ERCP as he does not seem to have any signs of biliary obstruction from gallstones. However if Intra-Op cholangiogram is performed and if biliary stone is found, please reconsult GI team for biliary intervention. GI to sign off, please recall as needed. Supervising Physician Co-Signing Physician Notes I personally saw and evaluated the patient on 02/17/2023 with OLIVIA Roman and agree with her findings and plan of care. 67 y/o M admitted with RUQ abdominal pain found to have acute cholecystitis on imaging. GI was consulted to see if patient would require an ERCP as he did have some mild LFT elevation. Concerns for acute cholecystitis on CT imaging and RUQ US. Bile ducts not well visualized on abdominal US however ALP and total bili are normal. Mild elevations in AST/ALT on arrival but he also has fatty liver on imaging. He is scheduled to undergo cholecystectomy this afternoon. On physical exam he has some mild RUQ tenderness and is mildly distended. Case discussed with advanced endoscopist Dr. Jay. No plans for ERCP at this time as his bilirubin and ALP are normal which argues against CBD stone. No biliary duct dilation seen on CT imaging but the ducts were not well visualized on ultrasound. Would continue to trend LFTs daily. Start miralax 17 g BID given constipation and stool burden seen on imaging. Please reach out if any further questions arise but GI will sign off at this time. Nancy Simons, DO Gastroenterology and Hepatology History of Present Illness Reason for Consultation: Elevated LFTs, cholecystitis Requesting Physician: Dr. Jeffrey Dugan Attending Physician: Dr. Nancy Simons History of Present Illness Patient is a 67 years old male with past medical history including GERD and hypertension who presented with right upper quadrant abdominal pain associated with nausea and vomiting which started about 5 days ago after he had some food. He denies fever or chills, denies any changes in his bowel habits. On evaluation he was noted to have elevated WBC. LFTs: Total bilirubin 1, AST 34, ALT 64, alkaline phosphatase 81. Lipase less than 3. Abdominal imaging studies with CT abdomen pelvis and gallbladder ultrasound showed signs of gallbladder wall thickening and dilation concerning for cholecystitis. There is also questionable gallbladder neck stone. He had been seen by the surgery team and is currently scheduled to undergo cholecystectomy this afternoon. Allergies Allergy/AdvReac Type Severity Reaction Status Date / Time tramadol AdvReac Severe Verified 02/17/23 08:50 Home Medications Medication Instructions Recorded Confirmed Type lisinopril 10 mg tablet 10 mg PO DAILY 02/16/23 02/16/23 History magnesium citrate 100 mg tablet 400 mg PO DAILY 02/17/23 02/17/23 History omeprazole 20 mg capsule,delayed 20 mg PO DAILY 02/17/23 02/17/23 History release Patient History Medical History (Updated 02/17/23 @ 13:01 by Regine Treviño PA-C) Hypertension Surgical History (Updated 02/17/23 @ 08:52 by Regine Treviño PA-C) Hx of foot surgery Hx of rotator cuff surgery Hx of total knee replacement Family History Other Family history non-contributory Social History Smoking Status: Former smoker Cigarettes Per Day: chew tobacco; Smoking End Date: 1989; Hx Alcohol Use: Yes Alcohol type: beer Hx Substance Use: No Preferred Language: Turkish Communication Ability: Effective 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 Beliefs That Will Affect Care: None Current Living Situation: Spouse Current Living Situation Comment: Lives at home with Other Information That Helps Us Care for You: No Feels Safe at Home: Yes Safety Concerns: Feels Safe At This Time Assistive Devices: None Review of Systems Review of Systems: All systems reviewed & are unremarkable except as noted in HPI & below Physical Exam Constitutional: WD/WN, vitals as above well groomed, cooperative and comfortable Eyes: PERRL, conjunctivae normal, anicteric sclerae ENMT: external ear and nose normal, oropharynx normal Respiratory: normal respiratory effort, lungs clear to auscultation Cardiovascular: RRR, no murmur, no edema Gastrointestinal (Abdomen): Tender to palpation on right upper quadrant area, bowel sounds hypoactive, abdomen soft Skin: no rashes, warm and dry no jaundice Psychiatric: A+Ox3, euthymic affect Lymphatic: no lymphedema Results & Data Vital Signs (Past 12 Hours) Vital Signs Temp Pulse Resp BP Pulse Ox O2 Del Method 02/17/23 11:21 37 C 90 16 143/88 H 95 Room Air 02/17/23 09:42 Room Air 02/17/23 07:28 36.9 C 94 H 16 143/84 H 96 Room Air 02/17/23 04:20 37.0 C 95 H 16 130/80 98 Room Air 02/17/23 03:41 94 H 19 109/73 95 Room Air 02/17/23 02:21 105 H 20 114/71 97 Room Air 02/17/23 00:45 100 H 20 138/82 95 Room Air
--- NOTE | 2023-02-17 12:15 | Hospitalist Progress Note ---
Date of Service February 17, 2023 Assessment & Plan (1) Sepsis: (2) Bacteremia: (3) Acute cholecystitis: (4) Thrombocytopenia: (5) Hypertension: Plan This is a 67-year-old male with significant past medical history of hypertension who presented to ED secondary to right upper quadrant abdominal pain, nausea vomiting and fever for 3 days. Patient met sepsis criteria upon admission secondary to leukocytosis and tachycardia. Source: Acute cholecystitis He received positive IV antibiotics with Zosyn in ED. Sepsis -resolved Bacteremia - PCR detected E. coli Acute cholecystitis Elevated LFTs -improving pt admitted to med/surg continue IV zosyn, IVF NPO pt to undergo Lap Adela today GI saw pt; however since LFTS normalized no indication for MCRP/ERCP at this time Thrombocytopenia lyme/anaplasma thus far negative possibly reactive in setting of sepsis will follow Anemia hgb 13.9/39.3 likely diluational in setting of IVF HTN pt on lisinopril as OP, currently on hold while NPO IV hydralazine prn Abnormal UA pt on IV zosyn await urine culture Hyperglycemia fasting glucose 135 likely iatrogenic 2/2 fluid admin will switch to LR add a1c to a.m. labs DVT ppx: SCDS for now, post operatively will initiate chemical ppx once cleared by surgery FULL CODE PCP: Shellie - pt wishes to switch to Dr. Pina at discharge A total of 55 minutes was spent with greater than 50% of that time personally viewing all current laboratory work and diagnostic imaging studies obtained in the ED. Additionally, I was able to view the patients past medication reconciliation and history with direct visualization in the patients chart. Included in the time above, a portion of that time was spent assessing the patient while discussing and collaborating with specialists, if necessary, and making medical decision making on treatment plan. All of the above was collaborated with Dr. Dugan. Please see addendum for further details. Admission and Anticipated Discharge Date Admission Date: February 17, 2023 Supervising Physician Co-Signing Physician Notes Attending addendum The patient was seen and examined in medical floor He has been complaining of right upper quadrant pain with nausea and vomiting, fever and chills for the last 3 days Noted to have cholecystitis and will have surgery this afternoon On examination Lying in bed with discomfort in the abdomen Hemodynamically stable with blood pressure on the upper side at 154/84 Chest-clear to auscultate bilaterally Heart-S1, S2 Abdomen-distended, soft, tender right upper quadrant with rebound tenderness. Bowel sound present Extremities-negative for any edema His admission labs, EKG and imaging studies reviewed Has gallstones with acute cholecystitis Appreciate surgery input and recommendation of laparoscopic cholecystectomy today Appreciate GI input and recommendation Agree with assessment and plan as outlined above by Alicia Dugan Subjective Patient was seen and examined in room 354-1. Follow-up acute cholecystitis. Patient reports a 3 to 4-day history of right upper quadrant abdominal pain. Pain has remained constant since Thursday evening after eating lunch. He attributes it to hot peanuts. Pain has remained constant and waxes and wanes in severity. Is made worse with burping or deep breathing. Nothing seems to improve pain. He has never experienced this in the past. Also associated with nausea, vomiting and fevers. His Tmax was 102 on Thursday but has had intermittent temps of 100-101 over the last 2 days. He denies passing flatus over the last 2 days. Last bowel movement was 2 days ago and normal for him. He has been unable to eat or drink anything over the last 2 to 3 days. Son is at bedside who is a pharmacist. Review of Systems Review of Systems: All systems reviewed & are unremarkable except as noted in HPI & below Physical Exam Physical Exam: Gen: WD/WN, NAD, A&O x3, obese HEENT: Normocephalic, atraumatic, conjunctivae moist, sclerae anicteric, mucous membranes moist. Lung: Clear to Auscultation bilaterally, no wheezes/rales/rhonchi Heart: Regular rate, regular rhythm, no murmurs, rubs, or gallops Abdomen: Distended abdomen, soft, diminished bowel sounds, tender to palpation right upper quadrant Extremities: No edema Skin: Warm, no rash, negative turgor. Results & Data Results & Data Vital Signs (Past 12 Hours) Vital Signs Temp Pulse Resp BP Pulse Ox O2 Del Method 02/17/23 11:21 37 C 90 16 143/88 H 95 Room Air 02/17/23 09:42 Room Air 02/17/23 07:28 36.9 C 94 H 16 143/84 H 96 Room Air 02/17/23 04:20 37.0 C 95 H 16 130/80 98 Room Air 02/17/23 03:41 94 H 19 109/73 95 Room Air 02/17/23 02:21 105 H 20 114/71 97 Room Air 02/17/23 00:45 100 H 20 138/82 95 Room Air Laboratory Results Short CBC 02/16/23 02/17/23 Range/Units 17:54 05:51 WBC 19.95 H 15.22 H (4.8-10.8) K/ul Hgb 17.3 13.9 L D (14.0-18.0) g/dl Hct 48.5 39.3 L (42.0-52.0) % Plt Count 89 L 89 L (130-400) K/uL BMP 02/16/23 02/17/23 17:54 05:51 Sodium 132 L 134 L Potassium 4.4 3.9 Chloride 98 104 Carbon Dioxide 24 25 BUN 23 22 Creatinine 1.18 1.02 Glucose 160 H 135 H Calcium 9.9 8.2 L Liver Function 02/16/23 02/16/23 02/16/23 Range/Units 17:54 19:23 20:02 Total Bilirubin 1.5 H (0.2-1.0) mg/dl Direct Bilirubin 0.3 H Cancelled (0-0.2) mg/dl AST 62 H (13-39) U/L ALT 109 H (7-52) U/L Alkaline Phosphatase 101 (34-104) U/L Albumin 3.8 (3.4-5.0) gm/dl 02/17/23 Range/Units 05:51 Total Bilirubin 1.0 D (0.2-1.0) mg/dl Direct Bilirubin 0.3 H (0-0.2) mg/dl AST 34 (13-39) U/L ALT 64 H (7-52) U/L Alkaline Phosphatase 81 (34-104) U/L Albumin 3.0 L (3.4-5.0) gm/dl Urine 02/16/23 Range/Units 19:26 Urine Color [place] Urine Appearance Cloudy A (Clear) Urine pH 5.0 (4.5-7.5) Ur Specific [place] 1.032 H (1.000-1.030) Urine Protein 2+ H (Negative) Urine Glucose (UA) Negative (Negative) Diagnostic Findings Abdomen/Pelvis CT 02/16/23 19:09 Exam(s): CT ABDOMEN + PELVIS With Contrast IV Amt: 84 ml optiray EXAM: CT Abdomen and Pelvis With Intravenous Contrast CLINICAL HISTORY: Reason for exam: abd pain, n/v. TECHNIQUE: Axial computed tomography images of the abdomen and pelvis with intravenous contrast. Automated exposure control was utilized for the study. A dose lowering technique was utilized adhering to the principles of ALARA. CONTRAST: Patient received 84 ml optiray of IV contrast COMPARISON: No relevant prior studies available. FINDINGS: Lung bases: Trace amount of subsegmental atelectasis in the right lung base. ABDOMEN: Liver: There is mild fatty infiltration of the liver. No focal liver lesion is seen. Gallbladder and bile ducts: The gallbladder is mildly dilated measuring 11 cm long axis with slight wall thickening and surrounding inflammation indicate acute cholecystitis. Pancreas: Unremarkable. No mass. No ductal dilation. Spleen: Unremarkable. No splenomegaly. Adrenals: Unremarkable. No mass. Kidneys and ureters: Simple 3 cm cyst extending off the lower pole of the left kidney. No follow-up is necessary. No hydronephrosis. Stomach and bowel: 6.5 cm of stool in the cecum suggesting mild constipation. The appendix is normal. There is diverticulosis of the left and sigmoid colon. No acute inflammatory changes are seen involving the bowel. No obstruction. No mucosal thickening. PELVIS: Appendix: See above. Bladder: The urinary bladder is mostly decompressed but otherwise unremarkable. Reproductive: Unremarkable as visualized. ABDOMEN and PELVIS: Intraperitoneal space: Unremarkable. No free air. No significant fluid collection. Bones/joints: Mild degenerative changes throughout the spine. No acute fracture or subluxation is seen. Soft tissues: Unremarkable. Vasculature: Unremarkable. No abdominal aortic aneurysm. Lymph nodes: Unremarkable. No enlarged lymph nodes. IMPRESSION: 1. The gallbladder is mildly dilated measuring 11 cm long axis with slight wall thickening and surrounding inflammation indicate acute cholecystitis. 2. 6.5 cm of stool in the cecum suggesting mild constipation. The appendix is normal. There is diverticulosis of the left and sigmoid colon. No acute inflammatory changes are seen involving the bowel. Electronically signed by: Misha Dey MD 02/16/23 21:06 PM Chest X-Ray 02/16/23 19:09 XR chest 1V portable HISTORY: 67 years-old Male ap, n/v acute chest pain with nausea and vomiting COMPARISON: CT abdomen and pelvis 02/16/2023 TECHNIQUE: AP view of the chest FINDINGS: Cardiac silhouette is moderately enlarged. Mild right hemidiaphragmatic elevation. Mild subsegmental bibasilar atelectasis. No pneumothorax, large pleural effusion or lobar airspace consolidation. Bones appear grossly intact. IMPRESSION: Cardiomegaly without acute process. ACT 112: Negative or not required by law. The above report was generated using voice recognition software. It may contain grammatical, syntax or spelling errors. Electronically signed by: Devin Castellano M.D. 02/17/2023 7:29 AM Gallbladder Ultrasound 02/16/23 21:41 Exam(s): US GALLBLADDER EXAM: US Abdomen Limited, Gallbladder CLINICAL HISTORY: Reason for exam: abd pain eval ?cholecystitis. TECHNIQUE: Real-time ultrasound of the right upper quadrant with image documentation. COMPARISON: CT scan from February 16, 2023 FINDINGS: Liver: The liver measures 15.5 cm with mild fatty infiltration. No focal liver lesion is seen. Gallbladder: The gallbladder is mildly dilated measuring 10.4 cm long axis. There is mild wall thickening. No shadowing stones are identified. There is sludge dependently. Questionable gallstone in the gallbladder neck. Common bile duct: Obscured. Pancreas: The pancreas is mostly obscured. IMPRESSION: The gallbladder is mildly dilated measuring 10.4 cm long axis. There is mild wall thickening. No shadowing stones are identified. There is sludge dependently. Questionable gallstone in the gallbladder neck. Sonographic Mason sign could not be determined due to recent pain medication administration. Electronically signed by: Misha Dey MD 02/17/23 00:07 AM Medications Administered Current Inpatient Medications Acetaminophen (Acetaminophen 325 Mg Tab) 650 mg PO Q4H PRN PRN Reason: pain/fever Stop: 03/19/23 04:29 Hydralazine HCl (Hydralazine Hcl 20 Mg/Ml Vial) 5 mg IV Q6H PRN PRN Reason: Hypertension Stop: 03/19/23 04:29 Hydromorphone HCl (Hydromorphone Inj 0.5 Mg/0.5 Ml Syr) 0.5 mg IV Q3H PRN PRN Reason: Pain Stop: 03/03/23 04:29 Last Admin: 02/17/23 08:43 Dose: 0.5 mg Dextrose/Sodium Chloride (D5w And Nss) 1,000 mls @ 125 mls/hr IV .Q8H CLARI Stop: 03/19/23 02:29 Last Admin: 02/17/23 10:59 Dose: 125 mls/hr Piperacillin Sod/Tazobactam (Sod 3.375 gm/ Dextrose) 115 mls @ 28.75 mls/hr IV Q8H CLARI; Protocol Stop: 02/27/23 04:59 Last Infusion: 02/17/23 09:18 Dose: Infused Ondansetron HCl (Ondansetron Inj 2 Mg/Ml 2 Ml Vial) 4 mg IV Q6H PRN PRN Reason: Nausea Stop: 03/19/23 04:29
[2023-02-17 12:33] LABS: A calco-baum cmplx NotReported Not Detected (NotDetected); Bact fragilis Not Reported Not Detected (NotDetected); C auris Not Reported Not Detected (NotDetected); CTX-M Resistant Gene Not Detected (NotDetected); Calbicans Not Reported Not Detected (NotDetected); Candida glabrata Not Reported Not Detected (NotDetected); Candida krusei Not Reported Not Detected (NotDetected); Cneoformans/gatti Not Reported Not Detected (NotDetected); Cparapsilosis Not Reported Not Detected (NotDetected); Ctropicalis Not Reported Not Detected (NotDetected); E cloacae compx Not Reported Not Detected (NotDetected); Efaecalis Not Reported Not Detected (NotDetected); Efaecium Not Reported Not Detected (NotDetected); Enterobacterales DETECTED (NotDetected); Enterobacterales Not Reported DETECTED (NotDetected); Escherichia coli Not Reported DETECTED (NotDetected); H influenzae Not Reported Not Detected (NotDetected); IMP Resistant Gene Not Detected (NotDetected); K aerogenes Not Reported Not Detected (NotDetected); KPC Resistant Gene Not Detected (NotDetected); Koxytoca Not Reported Not Detected (NotDetected); Kpneumoniae grp Not Reported Not Detected (NotDetected); Lmonocyt Not Reported Not Detected (NotDetected); N meningitidis Not Reported Not Detected (NotDetected); NDM Resistant Gene Not Detected (NotDetected); OXA 48 Like Resistant Gene Not Detected (NotDetected); P aeruginosa Not Reported Not Detected (NotDetected); Proteus spp Not Reported Not Detected (NotDetected); Salmonella spp Not Reported Not Detected (NotDetected); Smarcescens Not Reported Not Detected (NotDetected); Staph lugdunensis Not Reported Not Detected (NotDetected); Staph spp. Not Reported Not Detected (NotDetected); Staphaureus Not Reported Not Detected (NotDetected); Staphepi Not Reported Not Detected (NotDetected); Stenmaltophilia Not Reported Not Detected (NotDetected); Strep agal(GrpB) Not Reported Not Detected (NotDetected); Strep pneum Not Reported Not Detected (NotDetected); Strep pyog (GrpA) Not Reported Not Detected (NotDetected); Strep spp Not Reported Not Detected (NotDetected); VIM Resistant Gene Not Detected (NotDetected); mcr-1 Colistin Resistant Gene Not Detected (NotDetected)
[2023-02-17] MEDS: LACTATED RINGER'S 1,000 ML IV SCH (13:17)
[2023-02-17] MEDS ORDERED: fentaNYL citrate PF 100 MCG/2 ML VIAL IV PRN (15:30)
[2023-02-17] MEDS ORDERED: ePHEDrine sulfate 50 MG/ML AMP IV PRN (15:30)
[2023-02-17] MEDS ORDERED: ATROPINE SULFATE 0.1 MG/ML 10ML SYR IV PRN (15:30)
[2023-02-17] MEDS ORDERED: PROMETHAZINE HCL 6.25 MG in SODIUM CHLORIDE 0.9% 50 ML IV PRN (15:30)
--- NOTE | 2023-02-17 15:33 | Anesthesiology Consultation ---
Date of Service February 17, 2023 Assessment & Plan (1) Encounter for pre-operative examination: Chart Review Chart Review: Acceptable Risk for Surgery and Patient NOT seen in Pre Admission Testing Consults Requested none History Surgery Operation Date: 02/17/23 13:10 Proposed Procedures p Laparoscopic Cholecystectomy - Ronny Farias MD Height/Weight Height: 6 ft Weight: 99.5 kg Allergies Allergy/AdvReac Type Severity Reaction Status Date / Time tramadol AdvReac Severe Verified 02/17/23 08:50 Medications Home Medications Medication Instructions Recorded Confirmed Last Taken lisinopril 10 mg tablet 10 mg PO DAILY 02/16/23 02/16/23 Unknown magnesium citrate 100 mg tablet 400 mg PO DAILY 02/17/23 02/17/23 Unknown omeprazole 20 mg capsule,delayed 20 mg PO DAILY 02/17/23 02/17/23 Unknown release Active Medications Generic Name Dose Route Start Last Admin Trade Name Freq PRN Reason Stop Dose Admin Hydromorphone HCl 0.5 mg 02/17/23 04:30 02/17/23 08:43 Hydromorphone Inj 0.5 Mg/0.5 Ml Syr IV 03/03/23 04:29 0.5 mg Q3H PRN Administration Pain Piperacillin Sod/Tazobactam 115 mls @ 28.75 mls/hr 02/17/23 05:00 02/17/23 13:22 Sod 3.375 gm/ Dextrose IV 02/17/23 17:00 28.8 mls/hr Q8H CLARI Administration Protocol Lactated Ringer's 1,000 mls @ 125 mls/hr 02/17/23 13:00 02/17/23 15:30 Lr IV 03/19/23 12:59 0 mls/hr .Q8H CLARI Titration Past Medical History Medical History (Updated 02/17/23 @ 15:33 by Yusuf Marshall MD) Bacteremia Hypertension Sepsis Thrombocytopenia Transaminitis Assessment & Plan (1) Sepsis: (2) Bacteremia: (3) Acute cholecystitis: (4) Thrombocytopenia: (5) Hypertension: Plan This is a 67-year-old male with significant past medical history of hypertension who presented to ED secondary to right upper quadrant abdominal pain, nausea vomiting and fever for 3 days. Patient met sepsis criteria upon admission secondary to leukocytosis and tachycardia. Source: Acute cholecystitis He received positive IV antibiotics with Zosyn in ED. Past Family History Family History Other Family history non-contributory Past Surgical History Surgical History Hx of foot surgery Hx of rotator cuff surgery Hx of total knee replacement Social History Smoking Status: Former smoker Smoking cigarettes per day: chew tobacco Smoking End Date: 1989 Hx Alcohol Use: Yes Alcohol type: beer alcohol intake frequency: holidays/special occasions only Hx Substance Use: No Physical Exam Vital Signs Last Vital Signs Temp 37.6 C H 02/17/23 15:38 Pulse 93 H 02/17/23 15:38 Resp 18 02/17/23 15:38 BP 154/84 H 02/17/23 15:38 Pulse Ox 95 02/17/23 15:38 O2 Del Method Room Air 02/17/23 15:38 Testing Laboratory Results 02/17/23 05:51 02/17/23 05:51 Urine Color [place] 02/16/23 19:26 Urine Appearance Cloudy (Clear) A 02/16/23 19:26 Urine pH 5.0 (4.5-7.5) 02/16/23 19:26 Ur Specific [place] 1.032 (1.000-1.030) H 02/16/23 19:26 Urine Protein 2+ (Negative) H 02/16/23 19:26 Urine Glucose (UA) Negative (Negative) 02/16/23 19:26 Urine Ketones Trace (Negative) H 02/16/23 19:26 Urine Nitrite Positive (Negative) A 02/16/23 19:26 Ur Leukocyte Esterase Trace (Negative) H 02/16/23 19:26 Urine WBC (Auto) 1-5 /hpf (0-5) 02/16/23 19:26 Urine RBC (Auto) 0-4 /hpf (0-4) 02/16/23 19:26 U Hyaline Cast (Auto) 1-5 /lpf (0-5) 02/16/23 19:26 U Epithel Cells (Auto) >30 /lpf (0-5) H 02/16/23 19:26 Urine Bacteria (Auto) Negative (Negative) 02/16/23 19:26 03/20/23 21:53 Anaerobic Blood Culture - Preliminary Blood Gram negative bacilli 02/16/23 21:53 Anaerobic Blood Culture - Preliminary Blood Gram negative bacilli Electrocardiogram Date: 02/17/23 DICTATED BY:Levon Hopkins MD Test Reason : Blood Pressure : / mmHG Vent. Rate : 119 BPM Atrial Rate : 119 BPM P-R Int : 144 ms QRS Dur : 068 ms QT Int : 306 ms P-R-T Axes : 022 048 018 degrees QTc Int : 430 ms Poor data quality, interpretation may be adversely affected Sinus tachycardia Possible Left atrial enlargement Borderline ECG When compared with ECG of 06-DEC-2018 10:19, Vent. rate has increased BY 44 BPM Nonspecific T wave abnormality now evident in Inferior leads Confirmed by Levon Hopkins ([id number]) on 02/17/2023 10:52:02 AM Chest X-Ray Date: 02/16/23 XR chest 1V portable HISTORY: 67 years-old Male ap, n/v acute chest pain with nausea and vomiting COMPARISON: CT abdomen and pelvis 02/16/2023 TECHNIQUE: AP view of the chest FINDINGS: Cardiac silhouette is moderately enlarged. Mild right hemidiaphragmatic zarina vation. Mild subsegmental bibasilar atelectasis. No pneumothorax, large pleural effusion or lobar airspace consolidation. Bones appear grossly intact. IMPRESSION: Cardiomegaly without acute process.
[2023-02-17] MEDS ORDERED: fentaNYL citrate PF 100 MCG/2 ML VIAL ONE (15:39)
[2023-02-17] MEDS ORDERED: MIDAZOLAM HCL 1 MG/ML 2ML VIAL ONE (15:39)
[2023-02-17] MEDS ORDERED: ROCURONIUM BROMIDE 10 MG/ML 5 ML VIAL IV ONE ×4 (15:42→16:49)
[2023-02-17] MEDS ORDERED: PROPOFOL IV EMULSION 10 MG/ML 20 ML VIAL IV ONE ×2 (15:42→17:23)
[2023-02-17] MEDS ORDERED: LIDOCAINE 2% MPF LOCAL 5 ML VIAL INFIL ONE (15:42)
[2023-02-17] MEDS ORDERED: BUPIVACAINE/EPINEPHRINE 0.25% 1:200,000 30 ML VIAL ONE (15:46)
[2023-02-17] MEDS ORDERED: HYDROmorphone INJ 1 MG/ML SYRINGE IV PRN (15:47)
[2023-02-17] MEDS ORDERED: HYDROmorphone INJ 2 MG/ML SYR/VIAL ONE (16:27)
[2023-02-17] MEDS ORDERED: SURGICEL ABSORB HEMOSTAT 2IN X 14IN TOP ONE (16:57)
[2023-02-17] MEDS ORDERED: SUGAMMADEX SODIUM 200 MG/2 ML VIAL IV ONE (17:09)
--- NOTE | 2023-02-17 17:30 | Post Operative Brief Note ---
Immediate Post Op Note v1 Date of Surgery February 17, 2023 Pre & Post Diagnosis Operation Date: 02/17/23 13:10 Pre-Op Diagnosis: Acute cholecystitis. Post-Op Diagnosis: Acute cholecystitis. I identified the patient and participated in the time-out.: Yes Procedure Operation Date: 02/17/23 13:10 Actual Procedures p Laparoscopic Cholecystectomy(Not Applicable) - Ronny Farias MD Surgeon Ronny Farias MD Director Of Campus Re[employer] JESSE Flores assisted with tissue retraction, camera op, closure Estimated Blood Loss 15 Findings Consistent with Post-Op Diagnosis Severe acute gangrenous cholecystitis; abscessed gallbladder Drains Mejia-Wilkinson Drain
--- NOTE | 2023-02-17 17:37 | Operative Report ---
Post Operative Report Pre & Post Diagnosis Operation Date: 02/17/23 13:10 Pre-Op Diagnosis: Acute cholecystitis. Post-Op Diagnosis: Acute cholecystitis. I identified the patient and participated in the time-out.: Yes Procedure Operation Date: 02/17/23 13:10 Actual Procedures p Laparoscopic Cholecystectomy(Not Applicable) - Ronny Farias MD Surgeon Ronny Farias MD Automobile Carpets Molder JESSE Flores assisted with tissue retraction, camera op, closure Estimated Blood Loss 15 Findings Consistent with Post-Op Diagnosis Severe acute gangrenous cholecystitis, abscessed gallbladder; fenestrated subtotal cholecystectomy completed. Due to the difficulty of the procedure and the length of time required to complete the case a 22 modifier is warranted in this situation. Specimens Gallbladder Drains 15 Danish round RADHA Anesthesia Type General Complications No immediate complications Description of Procedure The patient was taken to the operating room, and placed supine on the operating table. A timeout was performed, perioperative antibiotics were administered, SCD boots were placed. After adequate anesthesia and analgesia was obtained, the abdomen was prepped and draped in the normal sterile fashion. Local anesthetic was injected into and around the proposed incision sites. An incision was made with a 15 blade scalpel in the supraumbilical region and carried down to the level of the fascia. The fascia was grasped with a trach hook, and a varies needle was used to enter the abdominal cavity. The abdomen was insufflated to a pressure of 15 mmHg, and a 11 mm trocar was placed in this location. A 10 mm, 30 degree laparoscope was placed into the abdominal cavity, and the abdomen was surveyed. The omentum was severely adhesed to the anterior abdominal wall and the liver surface, obscuring the gallbladder Two 5 mm trochars were placed along the right costal margin, and one 5 mm trocar was placed in the subxiphoid region under direct visualization. I was able to c arefully dissect the omentum down from the abdominal wall and from around the top of the gallbladder. There were areas of abscess between the gallbladder and the omentum. These were suctioned free. The gallbladder was grasped and was aspirated with an 18-gauge aspiration needle of purulent fluid. The gallbladder was grasped and retracted cephalad and laterally. The gallbladder distended down as 1 homogenous firm mass into the radha hepatis. Dissection was very difficult and tedious. To avoid the risk of common duct injury or great vessel injury, the decision was made to proceed with a fenestrated subtotal cholecystectomy. The harmonic scalpel was used to open the gallbladder wall at the base of the gallbladder just above the radha hepatis. The gallbladder was severely thickened in this location. Once entered into the gallbladder, the remainder of the purulent fluid and stones were suctioned free. We were above the level of the cystic duct and portal structures. Harmonic scalpel was used to excise the gallbladder at this location and up to remove it from the gallbladder bed. It was placed in an Endo Catch bag and removed via the supraumbilical port site. Attention was turned to hemostasis. The abdomen was copiously irrigated and suctioned free. Hemostasis was attended to the liver bed, and Surgicel was used for additional hemostasis at the level of the fenestrated gallbladder wall. Hemostasis was excellent. A 15 Danish round RADHA drain was placed through the lateral incision and secured with a 3-0 nylon suture. The RADHA drain was laid across the open end of the remnant gallbladder/cystic duct, and placed in Morison's pouch. All trochars were removed under direct visualization. The abdomen was desufflated. The fascia in the 11 mm port site was closed with a 0 Vicryl suture. The skin was closed with a running 4-0 Monocryl subcuticular stitch. Dermabond was applied. The patient tolerated the procedure without complication, and was transferred in stable condition to the PACU. All instrument, needle, and sponge counts were correct at the end of the case. My environmental engineering assistant was necessary throughout the procedure for tissue retraction, possible camera operation, and closure of the wounds. I understand that section 1842(b)(7)(D) of the Social Security act generally prohibits Medicare physician fee schedule payment for the services of assistants at surgery in teaching hospitals when qualified residents are available to furnish such services. I certify that the services for which payment is claimed were medically necessary and that no qualified resident was available to perform the services. I further understand that these services are subject to postpayment review by the Medicare carrier. I attest to the content of the Intraoperative Record and any orders documented therein. Any exceptions are noted below.
--- NOTE | 2023-02-17 18:10 | Anesthesiology Progress Note ---
Date of Service February 17, 2023 Anesthesia Post Procedure Vital Signs Vital Signs: Temp Pulse Pulse Pulse Resp BP Pulse Ox 02/17/23 17:55 97 H 16 161/85 H 99 02/17/23 18:05 96 H 23 161/91 H 98 02/17/23 17:45 95 H 14 159/79 H 99 02/17/23 17:37 36.5 C 103 H 16 148/85 H 97 02/17/23 15:38 37.6 C H 93 H 18 154/84 H 95 02/17/23 15:29 36.9 C 93 H 16 144/86 H 94 02/17/23 11:21 37 C 90 16 143/88 H 95 02/17/23 09:42 02/17/23 07:28 36.9 C 94 H 16 143/84 H 96 02/17/23 04:20 37.0 C 95 H 16 130/80 98 02/17/23 03:41 94 H 19 109/73 95 02/17/23 02:21 105 H 20 114/71 97 02/16/23 20:30 97 H 02/17/23 00:45 100 H 20 138/82 95 02/16/23 21:19 112 H 20 130/77 97 02/16/23 20:48 111 H 20 152/86 H 97 02/16/23 19:18 121 H 20 139/101 H 98 O2 Del Method O2 Flow Rate 02/17/23 17:55 Oxymask 2 02/17/23 18:05 Room Air 02/17/23 17:45 Oxymask 3 02/17/23 17:37 Oxymask 5 02/17/23 15:38 Room Air 02/17/23 15:29 Room Air 02/17/23 11:21 Room Air 02/17/23 09:42 Room Air 02/17/23 07:28 Room Air 02/17/23 04:20 Room Air 02/17/23 03:41 Room Air 02/17/23 02:21 Room Air 02/16/23 20:30 02/17/23 00:45 Room Air 02/16/23 21:19 Room Air 02/16/23 20:48 Room Air 02/16/23 19:18 Room Air Pain Intensity Abdomen: Pain Intensity: 3 Transfer of Care Handoff Completed per policy Notes Mental Status: alert / awake / arousable and participated in evaluation Patient Amnestic to Procedure: Yes Nausea / Vomiting: adequately controlled Pain: adequately controlled Airway Patency, RR, SpO2: stable & adequate BP & HR: stable & adequate Hydration State: stable & adequate Anesthetic Complications: no major complications apparent and Pt Satisfied with anesthetic care
[2023-02-17] MEDS: cefTRIAXone SODIUM 2,000 MG in DEXTROSE 5% 50 ML IV SCH (20:00)
[2023-02-17] MEDS: metroNIDAZOLE 500 MG/100 ML BAG IV SCH (20:42)
[2023-02-18] MEDS: LACTATED RINGER'S 1,000 ML IV SCH ×3 (01:51→16:04)
[2023-02-18] MEDS: metroNIDAZOLE 500 MG/100 ML BAG IV SCH ×3 (05:25→23:17)
[2023-02-18] MEDS: HYDROmorphone INJ 0.5 MG/0.5 ML SYR IV PRN ×2 (05:27→09:41)
[2023-02-18 08:04] LABS: Basophils # (auto) 0.01 K/uL (0-0.2); Basophils % (auto) 0.1 %; Hematocrit (blood only) 37.5 % (42.0-52.0); Hemoglobin 12.8 g/dl (14.0-18.0); Immature Granulocytes # (auto) 0.04 K/uL (0.01-0.20); Immature Granulocytes % (auto) 0.4 %; Lymphocytes % (auto) 6.5 %; Mean Corpuscular Hemoglobin 31.5 pg (25.0-34.0); Mean Corpuscular Hgb Conc 34.1 g/dL (32.0-36.0); Mean Corpuscular Volume 92.4 fL (80.0-100.0); Mean Platelet Volume 9.6 fL (9.4-12.4); Monocytes # (auto) 1.12 K/uL (0.11-0.59); Monocytes % (auto) 10.4 %; Neutrophils # (auto) 8.93 K/uL (1.40-6.50); Neutrophils % (auto) 82.6 %; Platelet Count 76 K/uL (130-400); RDW Coefficient of Variation 12.1 % (11.5-14.5); RDW Standard Deviation 41.3 fL (36.4-46.3); Red Blood Count 4.06 M/uL (4.70-6.10)
[2023-02-18 08:18] LABS: Albumin Globulin Ratio 1.1 (0.9-2); Albumin Level 2.7 gm/dl (3.4-5.0); BUN Creatinine Ratio 18.6 (10-20); Bilirubin,Total 1.2 mg/dl (0.2-1.0); Calcium 7.8 mg/dl (8.5-10.1); Creatinine Clr Calc Pharmacy 92.7 ml/min; Est GFR (African American) 94.6 ml/min; Est GFR (Non-African American) 81.6 ml/min; Globulin 2.4 gm/dl (2.5-4.0); Magnesium 1.8 mg/dl (1.7-2.4); Potassium 3.9 mmol/L (3.5-5.1); Total Protein 5.1 gm/dl (6.0-8.3)
[2023-02-18] MEDS ORDERED: INDOMETHACIN 50 MG SUPP PR SCH (08:45)
--- NOTE | 2023-02-18 09:33 | Anesthesiology Consultation ---
Date of Service February 18, 2023 Assessment & Plan Chart Review Chart Review: entry level account manager initiated History Surgery Operation Date: 02/17/23 13:10 Proposed Procedures p Laparoscopic Cholecystectomy - Ronny Farias MD Operation Date: 02/18/23 13:30 Proposed Procedures p Endoscopic Retrograde Cholangiopancreatogram - Declan Jay DO Height/Weight Height: 6 ft Weight: 99.5 kg Allergies Allergy/AdvReac Type Severity Reaction Status Date / Time tramadol AdvReac Severe Verified 02/17/23 08:50 Medications Home Medications Medication Instructions Recorded Confirmed Last Taken lisinopril 10 mg tablet 10 mg PO DAILY 02/16/23 02/16/23 Unknown magnesium citrate 100 mg tablet 400 mg PO DAILY 02/17/23 02/17/23 Unknown omeprazole 20 mg capsule,delayed 20 mg PO DAILY 02/17/23 02/17/23 Unknown release Active Medications Generic Name Dose Route Start Last Admin Trade Name Freq PRN Reason Stop Dose Admin Hydromorphone HCl 0.5 mg 02/17/23 04:30 02/18/23 05:27 Hydromorphone Inj 0.5 Mg/0.5 Ml Syr IV 03/03/23 04:29 0.5 mg Q3H PRN Administration Pain Lactated Ringer's 1,000 mls @ 125 mls/hr 02/17/23 13:00 02/18/23 09:32 Lr IV 03/19/23 12:59 125 mls/hr .Q8H CLARI Administration Ceftriaxone Sodium 2,000 mg/ 70 mls @ 140 mls/hr 02/17/23 20:00 02/17/23 20:35 Dextrose IV 03/03/23 19:59 Infused Q24H CLARI Infusion Metronidazole 500 mg in 100 mls @ 100 mls/hr 02/17/23 21:00 02/18/23 06:25 Flagyl IV 03/03/23 20:59 Infused Q8H CLARI Infusion NPO Date Last Intake of Fluids: 02/16/23 Time Last Intake of Fluids: 21:00 Date Last Intake of Solids: 02/13/23 Time Last Intake of Solids: 18:00 Past Medical History Medical History Bacteremia Hypertension Sepsis Thrombocytopenia Transaminitis Past Family History Family History Other Family history non-contributory Past Surgical History Surgical History Hx of foot surgery Hx of rotator cuff surgery Hx of total knee replacement Social History Smoking Status: Former smoker Smoking cigarettes per day: chew tobacco Smoking End Date: 1989 Hx Alcohol Use: Yes Alcohol type: beer alcohol intake frequency: holidays/special occasions only Hx Substance Use: No Physical Exam Vital Signs Last Vital Signs Temp 97.9 F 02/18/23 07:26 Pulse 100 H 02/18/23 07:26 Resp 17 02/18/23 07:26 BP 142/80 H 02/18/23 07:26 Pulse Ox 95 02/18/23 07:26 O2 Del Method Room Air 02/18/23 07:26 O2 Flow Rate 2 02/17/23 17:55 Testing Laboratory Results 02/18/23 07:39 02/18/23 07:39 Urine Color [place] 02/16/23 19:26 Urine Appearance Cloudy (Clear) A 02/16/23 19:26 Urine pH 5.0 (4.5-7.5) 02/16/23 19:26 Ur Specific [place] 1.032 (1.000-1.030) H 02/16/23 19:26 Urine Protein 2+ (Negative) H 02/16/23 19:26 Urine Glucose (UA) Negative (Negative) 02/16/23 19:26 Urine Ketones Trace (Negative) H 02/16/23 19:26 Urine Nitrite Positive (Negative) A 02/16/23 19:26 Ur Leukocyte Esterase Trace (Negative) H 02/16/23 19:26 Urine WBC (Auto) 1-5 /hpf (0-5) 02/16/23 19:26 Urine RBC (Auto) 0-4 /hpf (0-4) 02/16/23 19:26 U Hyaline Cast (Auto) 1-5 /lpf (0-5) 02/16/23 19:26 U Epithel Cells (Auto) >30 /lpf (0-5) H 02/16/23 19:26 Urine Bacteria (Auto) Negative (Negative) 02/16/23 19:26 02/16/23 21:53 Aerobic Blood Culture - Preliminary Blood No growth in Aerobic bottle after 24 hours. Anaerobic Blood Culture - Preliminary Gram negative bacilli 02/16/23 21:53 Aerobic Blood Culture - Preliminary Blood No growth in Aerobic bottle after 24 hours. Anaerobic Blood Culture - Preliminary Gram negative bacilli Electrocardiogram Date: 02/17/23 DICTATED BY:Levon Hopkins MD Test Reason : Blood Pressure : / mmHG Vent. Rate : 119 BPM Atrial Rate : 119 BPM P-R Int : 144 ms QRS Dur : 068 ms QT Int : 306 ms P-R-T Axes : 022 048 018 degrees QTc Int : 430 ms Poor data quality, interpretation may be adversely affected Sinus tachycardia Possible Left atrial enlargement Borderline ECG When compared with ECG of 06-DEC-2018 10:19, Vent. rate has increased BY 44 BPM Nonspecific T wave abnormality now evident in Inferior leads Confirmed by Levon Hopkins ([id number]) on 02/17/2023 10:52:02 AM Chest X-Ray Date: 02/16/23 XR chest 1V portable HISTORY: 67 years-old Male ap, n/v acute chest pain with nausea and vomiting COMPARISON: CT abdomen and pelvis 02/16/2023 TECHNIQUE: AP view of the chest FINDINGS: Cardiac silhouette is moderately enlarged. Mild right hemidiaphragmatic elevation. Mild subsegmental bibasilar atelectasis. No pneumothorax, large pleural effusion or lobar airspace consolidation. Bones appear grossly intact. IMPRESSION: Cardiomegaly without acute process.
--- NOTE | 2023-02-18 09:47 | Surgery Progress Note ---
Date of Service February 18, 2023 Assessment & Plan (1) Acute upper abdominal pain: (2) Acute cholecystitis: Plan POD # 1 s/p laparoscopic subtotal fenestrated cholecystectomy for gangrenous purulent cholecystitis -afebrile, vss - moderate postop pain - leukocytosis resolved - t. bili 1.2 - LFTS normalized - + blood cultures for E.coli Plan: Discussed with GI service that he will need CBD stent to prevent postop bile leak given fenestrated cholecystetomy continue NPO for now until ERCP able to be scheduled Continue IV Fluids Continue IV antibiotics COntinue pain management as needed teja drain to bulb suction encourage ambulation incentive spirometry scds for DVT prophlyaxis repeat am labs Dr. Farias has seen and examined pt, agrees with above. Admission and Anticipated Discharge Date Admission Date: February 17, 2023 Subjective not feeling great this am, having postoperative pain and feeling very dry no chest pain or shortness of breath urinating without difficulty no fevers last night not passing gas has not ambulated much since surgery Physical Exam Constitutional: + obese, cooperative and comfortable; no acute distress, not ill appearing, not in distress, not diaphoretic and not lethargic Respiratory: normal respiratory effort; no respiratory distress Gastrointestinal (Abdomen): Inspection/Auscultation: + abdomen distended (mild distention), + abdominal surgical incision (clean/dry/intact with dermabond), + abdominal surgical drain present (serosanguineous) and + hypoactive bowel sounds; + abnormal bowel sounds Percussion/Palpation: + abdomen tender (at incision sites and drain site) and abdomen soft; no guarding and abdomen not rigid Skin: no rashes, warm and dry no jaundice Psychiatric: Orientation: alert and oriented x 3 Results & Data Vital Signs (Past 12 Hours) Vital Signs Temp Pulse Resp BP Pulse Ox O2 Del Method 02/18/23 07:26 36.6 C 100 H 17 142/80 H 95 Room Air 02/18/23 03:27 36.8 C 90 18 138/88 98 Room Air 02/17/23 22:36 37.1 C 102 H 18 157/93 H 97 Room Air Laboratory Results 02/18/23 02/18/23 02/18/23 Range/Units 07:39 07:39 07:39 WBC 10.80 (4.8-10.8) K/ul RBC 4.06 L (4.70-6.10) M/uL Hgb 12.8 L (14.0-18.0) g/dl Hct 37.5 L (42.0-52.0) % MCV 92.4 (80.0-100.0) fL MCH 31.5 (25.0-34.0) pg MCHC 34.1 (32.0-36.0) g/dL RDW Std Deviation 41.3 (36.4-46.3) fL RDW Coeff of Ann-Marie 12.1 (11.5-14.5) % Plt Count 76 L (130-400) K/uL MPV 9.6 (9.4-12.4) fL Immature Gran % (Auto) 0.4 % Neut % (Auto) 82.6 % Lymph % (Auto) 6.5 % [place] % (Auto) 10.4 % Eos % (Auto) 0.0 % Baso % (Auto) 0.1 % Neut # (Auto) 8.93 H (1.40-6.50) K/uL Lymph # (Auto) 0.70 L (1.2-3.4) K/uL [place] # (Auto) 1.12 H (0.11-0.59) K/uL Eos # (Auto) 0.00 (0-0.50) K/uL Baso # (Auto) 0.01 (0-0.2) K/uL Immature Gran # (Auto) 0.04 (0.01-0.20) K/uL Sodium 135 L (136-145) mmol/L Potassium 3.9 (3.5-5.1) mmol/L Chloride 105 (98-107) mmol/L Carbon Dioxide 26 (21-32) mmol/L Anion Gap 4 (3-11) BUN 18 (6-23) mg/dl Creatinine 0.97 (0.6-1.4) mg/dl Est Cr Clr Drug Dosing 92.7 ml/min Est GFR ( Amer) 94.6 ml/min Est GFR (Non-Af Amer) 81.6 ml/min BUN/Creatinine Ratio 18.6 (10-20) Glucose 103 H (70-99(Fasting)) mg/dl Estimat Average Glucose Pending Hemoglobin A1c Pending Calcium 7.8 L (8.5-10.1) mg/dl Magnesium 1.8 (1.7-2.4) mg/dl Total Bilirubin 1.2 H (0.2-1.0) mg/dl AST 33 (13-39) U/L ALT 46 (7-52) U/L Alkaline Phosphatase 92 (34-104) U/L Total Protein 5.1 L (6.0-8.3) gm/dl Albumin 2.7 L (3.4-5.0) gm/dl Globulin 2.4 L (2.5-4.0) gm/dl Albumin/Globulin Ratio 1.1 (0.9-2) Enterobacterales (PCR) (NotDetected) E. coli (PCR) (NotDetected) mcr-1 Colistin Res Gene PCR (NotDetected) blaIMP Car res Gene PCR (NotDetected) KPC-Carbap Res Gene PCR (NotDetected) blaNDM Car Res Gene PCR (NotDetected) OXA-48 Carbapenem Resis Gene (PCR) (NotDetected) blaVIM Car Res Gene PCR (NotDetected) CTX-M Gene Resistance (PCR) (NotDetected) Bld Cult ID Panel PCR (NotDetected) 02/16/23 Range/Units 21:53 WBC (4.8-10.8) K/ul RBC (4.70-6.10) M/uL Hgb (14.0-18.0) g/dl Hct (42.0-52.0) % MCV (80.0-100.0) fL MCH (25.0-34.0) pg MCHC (32.0-36.0) g/dL RDW Std Deviation (36.4-46.3) fL RDW Coeff of Ann-Marie (11.5-14.5) % Plt Count (130-400) K/uL MPV (9.4-12.4) fL Immature Gran % (Auto) % Neut % (Auto) % Lymph % (Auto) % [place] % (Auto) % Eos % (Auto) % Baso % (Auto) % Neut # (Auto) (1.40-6.50) K/uL Lymph # (Auto) (1.2-3.4) K/uL [place] # (Auto) (0.11-0.59) K/uL Eos # (Auto) (0-0.50) K/uL Baso # (Auto) (0-0.2) K/uL Immature Gran # (Auto) (0.01-0.20) K/uL Sodium (136-145) mmol/L Potassium (3.5-5.1) mmol/L Chloride (98-107) mmol/L Carbon Dioxide (21-32) mmol/L Anion Gap (3-11) BUN (6-23) mg/dl Creatinine (0.6-1.4) mg/dl Est Cr Clr Drug Dosing ml/min Est GFR ( Amer) ml/min Est GFR (Non-Af Amer) ml/min BUN/Creatinine Ratio (10-20) Glucose (70-99(Fasting)) mg/dl Estimat Average Glucose Hemoglobin A1c Calcium (8.5-10.1) mg/dl Magnesium (1.7-2.4) mg/dl Total Bilirubin (0.2-1.0) mg/dl AST (13-39) U/L ALT (7-52) U/L Alkaline Phosphatase (34-104) U/L Total Protein (6.0-8.3) gm/dl Albumin (3.4-5.0) gm/dl Globulin (2.5-4.0) gm/dl Albumin/Globulin Ratio (0.9-2) Enterobacterales (PCR) DETECTED A (NotDetected) E. coli (PCR) DETECTED A (NotDetected) mcr-1 Colistin Res Gene PCR Not Detected (NotDetected) blaIMP Car res Gene PCR Not Detected (NotDetected) KPC-Carbap Res Gene PCR Not Detected (NotDetected) blaNDM Car Res Gene PCR Not Detected (NotDetected) OXA-48 Carbapenem Resis Gene (PCR) Not Detected (NotDetected) blaVIM Car Res Gene PCR Not Detected (NotDetected) CTX-M Gene Resistance (PCR) Not Detected (NotDetected) Bld Cult ID Panel PCR See PCR Comment (NotDetected)
[2023-02-18] MEDS ORDERED: HYDROmorphone INJ 1 MG/ML SYRINGE IV PRN (09:49)
[2023-02-18] MEDS ORDERED: HYDROmorphone INJ 0.5 MG/0.5 ML SYR IV PRN (09:50)
[2023-02-18 10:14] LABS: Estimated Average Glucose 111 mg/dl; Hemoglobin A1C 5.5 % (4.5-5.6)
--- NOTE | 2023-02-18 11:32 | Gastroenterology Progress Note ---
Date of Service February 18, 2023 Assessment & Plan (1) Acute cholecystitis: (2) Transaminitis: Plan: Patient is a 67 years old male who presented with right upper quadrant abdominal pain, associated with nausea and vomiting. Abdominal imaging studies with CT and ultrasound showed signs of cholecystitis and questionable gallbladder neck stone. LFTs are fairly unremarkable, also normal lipase. He was taken to OR yesterday by Dr. Farias. Found to have severe acute gangrenous cholecystitis, abscessed gallbladder and fenestrated subtotal cholecystectomy was completed. RADHA drain in place draining sangeous fluid. GI re- consulted to perform biliary stent placement to prevent post op bile leak. - Continue antibiotics - Keep NPO - ERCP w biliary stent placement by Dr. Jay in OR today - Surgery following Admission and Anticipated Discharge Date Admission Date: February 17, 2023 Supervising Physician Co-Signing Physician Notes I saw and evaluated the patient. We were asked to reevaluate this patient after recent cholecystectomy that was quite complicated due to adhesions, as the surgery was quite complicated a ERCP with biliary stent placement has been requested to prevent a postoperative bile leak. Risks of ERCP were discussed with the patient to include bleeding, infection, perforation, pain, bile duct and need for follow-up shraddha Plan ERCP today Subjective Pt having diffuse abd pain, not passing flatus, denies n/v. Review of Systems Review of Systems: All systems reviewed & are unremarkable except as noted in HPI & below Physical Exam Constitutional: WD/WN, vitals as above well groomed, cooperative and comfortable Eyes: PERRL, conjunctivae normal, anicteric sclerae ENMT: external ear and nose normal, oropharynx normal Respiratory: normal respiratory effort, lungs clear to auscultation Cardiovascular: RRR, no murmur, no edema Gastrointestinal (Abdomen): + TTP generalized, abd distension, BS hypoactive. RADHA drain to RUQ w sangenous fluid Skin: no rashes, warm and dry no jaundice Psychiatric: A+Ox3, euthymic affect Lymphatic: no lymphedema Results & Data Vital Signs (Past 12 Hours) Vital Signs Temp Pulse Resp BP Pulse Ox O2 Del Method 02/18/23 07:26 36.6 C 100 H 17 142/80 H 95 Room Air 02/18/23 03:27 36.8 C 90 18 138/88 98 Room Air
--- NOTE | 2023-02-18 11:39 | Hospitalist Progress Note ---
Date of Service February 18, 2023 Assessment & Plan (1) Sepsis: (2) Bacteremia: (3) Acute cholecystitis: (4) Thrombocytopenia: (5) Hypertension: Plan This is a 67-year-old male with significant past medical history of hypertension who presented to ED secondary to right upper quadrant abdominal pain, nausea vomiting and fever for 3 days. Patient met sepsis criteria upon admission secondary to leukocytosis and tachycardia. Source: Acute cholecystitis He received positive IV antibiotics with Zosyn in ED. Sepsis POA Gram-negative bacteremia - PCR detected E. coli, enterobacterales Severe Gangrenous Acute cholecystitis Elevated LFTs -improving pt admitted to med/surg Antibiotics de-escalated to IV Rocephin and Flagyl, continue IV fluids until n.p.o. lifted POD #1 laparoscopic fenestrated subtotal cholecystectomy in setting of severe acute gangrenous cholecystitis and abscess gallbladder GI recalled for evaluation for ERCP and likely CBD stent placement to prevent bile leak Remains NPO LFTs normalized Await final blood and urine culture We will get ID recommendation Thrombocytopenia lyme/anaplasma thus far negative possibly reactive in setting of sepsis will follow, down to 76 today Anemia hgb downtrending 12.8/37.9 likely dilutional in setting of IVF and pt was likely volume contracted on admission EBL on 15ml will continue to follow closely HTN pt on lisinopril as OP, currently on hold while NPO IV hydralazine prn resume oral lisinopril when approp Abnormal UA pt on IV Rocephin/flagyl await urine culture Hyperglycemia fasting glucose 135 likely iatrogenic 2/2 fluid admin will switch to LR a1c 5.5 DVT ppx: SCDS for now, post operatively will initiate chemical ppx once cleared by surgery; Encouage pt to ambulate in hallway FULL CODE PCP: Shellie - pt wishes to switch to Dr. Pina at discharge A total of 50 minutes was spent with greater than 50% of that time personally viewing all current laboratory work and diagnostic imaging studies obtained in the ED. Additionally, I was able to view the patients past medication reconciliation and history with direct visualization in the patients chart. Included in the time above, a portion of that time was spent assessing the patient while discussing and collaborating with specialists, if necessary, and making medical decision making on treatment plan. All of the above was collaborated with Dr. Dugan. Please see addendum for further details. Admission and Anticipated Discharge Date Admission Date: February 17, 2023 Supervising Physician Co-Signing Physician Notes Attending addendum The patient was seen and examined in medical floor He is status post laparoscopic cholecystectomy for acute gangrenous cholecystitis and will have ERCP with a stent placement today Has been bacteremic and awaiting ID evaluation to guide about use of antibiotic and duration On examination Lying in bed with some distress due to abdominal discomfort and pain Hemodynamically stable and has tachycardia likely secondary to infection and mild dehydration Chest-clear to auscultate bilaterally Heart-S1-S2 Abdomen-distended, soft, tender and bowel sound present Extremities-trace edema bilaterally His labs and imaging studies reviewed Gangrenous cholecystitis status post laparoscopic cholecystectomy ERCP and stent plan for this afternoon Gram-negative bacteremia for further identification Agree with assessment and plan as outlined above by JESSE Thrasher Dr Subjective Patient was seen and examined in room 354-1. Follow-up acute cholecystitis. He is s/p lap lexi on 02/17/23. He doesn't feel well this morning. He wants something to drink, but understands he is NPO. He denies f/c/s, chest pain, sob, nausea or vomiting. He does have some abdominal generalized tenderness but overall this in improved since surgery. He states he is to have GI procedure his morning. Review of Systems Review of Systems: All systems reviewed & are unremarkable except as noted in HPI & below Physical Exam Physical Exam: Gen: WD/WN, NAD, A&O x3, obese, flat affected today HEENT: Normocephalic, atraumatic, conjunctivae moist, sclerae anicteric, mucous membranes dry Lung: Clear to Auscultation bilaterally, no wheezes/rales/rhonchi Heart: Regular rate, regular rhythm, no murmurs, rubs, or gallops Abdomen: Distended abdomen, soft, diminished bowel sounds, +lap incisions w/o erythema, +RADHA drain Extremities: No edema Skin: Warm, no rash, negative turgor. Results & Data Results & Data Vital Signs (Past 12 Hours) Vital Signs Temp Pulse Resp BP Pulse Ox O2 Del Method 02/18/23 07:26 36.6 C 100 H 17 142/80 H 95 Room Air 02/18/23 03:27 36.8 C 90 18 138/88 98 Room Air Laboratory Results Short CBC 02/18/23 Range/Units 07:39 WBC 10.80 (4.8-10.8) K/ul Hgb 12.8 L (14.0-18.0) g/dl Hct 37.5 L (42.0-52.0) % Plt Count 76 L (130-400) K/uL BMP 02/18/23 07:39 Sodium 135 L Potassium 3.9 Chloride 105 Carbon Dioxide 26 BUN 18 Creatinine 0.97 Glucose 103 H Calcium 7.8 L Liver Function 02/18/23 Range/Units 07:39 Total Bilirubin 1.2 H (0.2-1.0) mg/dl AST 33 (13-39) U/L ALT 46 (7-52) U/L Alkaline Phosphatase 92 (34-104) U/L Albumin 2.7 L (3.4-5.0) gm/dl Medications Administered Current Inpatient Medications Acetaminophen (Acetaminophen 325 Mg Tab) 650 mg PO Q4H PRN PRN Reason: pain/fever Stop: 03/19/23 04:29 Hydralazine HCl (Hydralazine Hcl 20 Mg/Ml Vial) 5 mg IV Q6H PRN PRN Reason: Hypertension Stop: 03/19/23 04:29 Hydromorphone HCl (Hydromorphone Inj 1 Mg/Ml Syringe) 1 mg IV Q3H PRN PRN Reason: Severe Pain (Scale 7, 8, 9,10) Stop: 03/04/23 09:48 Hydromorphone HCl (Hydromorphone Inj 0.5 Mg/0.5 Ml Syr) 0.5 mg IV Q3H PRN PRN Reason: pain (scale 4,5,6) Stop: 03/03/23 04:29 Lactated Ringer's (Lr) 1,000 mls @ 125 mls/hr IV .Q8H CLARI Stop: 03/19/23 12:59 Last Admin: 02/18/23 09:32 Dose: 125 mls/hr Ceftriaxone Sodium 2,000 mg/ (Dextrose) 70 mls @ 140 mls/hr IV Q24H CLARI Stop: 03/03/23 19:59 Last Infusion: 02/17/23 20:35 Dose: Infused Metronidazole (Flagyl) 500 mg in 100 mls @ 100 mls/hr IV Q8H [facility] Stop: 03/03/23 20:59 Last Infusion: 02/18/23 06:25 Dose: Infused Indomethacin (Indomethacin 50 Mg Supp) 100 mg IN TODAY@0845 [facility] Stop: 02/18/23 16:00 Ondansetron HCl (Ondansetron Inj 2 Mg/Ml 2 Ml Vial) 4 mg IV Q6H PRN PRN Reason: Nausea Stop: 03/19/23 04:29
--- NOTE | 2023-02-18 13:16 | History & Physical Bridge Note ---
Date of Service February 18, 2023 History & Physical Bridge Note I have examined the patient, reviewed the History & Physical and in the interval since the performance of the History & Physical I have noted the following changes of clinical significance: no changes noted Risks of ERCP were discussed with the patient to include bleeding, infection, perforation, pain, bile duct and need for follow-up studies.
[2023-02-18] MEDS ORDERED: PROPOFOL IV EMULSION 10 MG/ML 20 ML VIAL IV ONE (13:57)
[2023-02-18] MEDS ORDERED: LIDOCAINE 2% 20 MG/ML 5 ML SYR IV ONE (14:05)
[2023-02-18] MEDS ORDERED: DEXAMETHASONE SOD INJ 4 MG/ML VIAL ONE (14:06)
[2023-02-18] MEDS ORDERED: ONDANSETRON INJ 2 MG/ML 2 ML VIAL ONE (14:06)
[2023-02-18] MEDS ORDERED: GLYCOPYRROLATE 0.2 MG/ML VIAL ONE (14:06)
[2023-02-18] MEDS ORDERED: MIDAZOLAM HCL 1 MG/ML 2ML VIAL ONE (14:09)
[2023-02-18] MEDS ORDERED: fentaNYL citrate PF 100 MCG/2 ML VIAL ONE (14:09)
[2023-02-18] MEDS ORDERED: PROMETHAZINE HCL 12.5 MG in SODIUM CHLORIDE 0.9% 50 ML IV PRN (14:37)
[2023-02-18] MEDS ORDERED: ePHEDrine sulfate 50 MG/ML AMP IV PRN (14:37)
[2023-02-18] MEDS ORDERED: FLUMAZENIL 0.1 MG/1 ML 10 ML VIAL IV PRN (14:37)
[2023-02-18] MEDS ORDERED: ATROPINE SULFATE 0.1 MG/ML 10ML SYR IV PRN (14:37)
[2023-02-18] MEDS ORDERED: NALOXONE HCL 0.4 MG/1 ML VIAL/CARP IV PRN (14:37)
[2023-02-18] MEDS ORDERED: fentaNYL citrate PF 100 MCG/2 ML VIAL IV PRN (14:37)
[2023-02-18] MEDS ORDERED: ONDANSETRON INJ 2 MG/ML 2 ML VIAL IV PRN (14:37)
--- NOTE | 2023-02-18 14:54 | Post Operative Brief Note ---
Immediate Post Op Note v1 Date of Surgery February 18, 2023 Pre & Post Diagnosis Operation Date: 02/18/23 13:30 Pre-Op Diagnosis: Suspected bile leak I identified the patient and participated in the time-out.: Yes Procedure Operation Date: 02/18/23 13:30 Actual Procedures p Endoscopic Retrograde Cholangiopancreato - Declan Jay DO Surgeon Declan Jay DO Rug Renovator JESSE Flores assisted with tissue retraction, camera op, closure Estimated Blood Loss 15 Findings Consistent with Post-Op Diagnosis Drains Mejia-Wilkinson Drain Anesthesia Type General
--- NOTE | 2023-02-18 14:55 | Communication Note ---
Date of Service: February 18, 2023 Patient underwent ERCP this afternoon as per request of general surgery. 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 A biliary sphincterotomy was performed and a biliary stent was placed. There was no obvious leak from the cystic duct remnant noted. Recommendations May have clear liquids 10-day course of antibiotics Avoid nonsteroidals for 1 week Repeat ERCP for stent removal in 6 to 8 weeks Call with any questions or concerns
--- NOTE | 2023-02-18 15:00 | GI REPORT ---
Patient Name: [facility] Procedure Date: 02/18/2023 1:44 PM Date of : 1955 Admit Type: Inpatient Age: 67 Gender: Male Attending MD: Declan Jay DO, Procedure: ERCP Providers: Declan Jay DO Referring MD: Jeffrey Stanford Indications: Suspected bile leak Medicines: General Anesthesia Complications: No immediate complications. Estimated blood loss: Minimal. Estimated Blood Loss: Estimated blood loss was minimal. Procedure: Pre-Anesthesia Assessment: - Prior to the procedure, a History and Physical was performed, and patient medications, allergies and sensitivities were reviewed. The patient's tolerance of previous anesthesia was reviewed. - The risks and benefits of the procedure and the sedation options and risks were discussed with the patient. All questions were answered and informed consent was obtained. - Patient identification and proposed procedure were verified prior to the procedure by the physician, the nurse and the food production machine operator. The procedure was verified in the procedure room. - Pre-procedure physical examination revealed no contraindications to sedation. - ASA Grade Assessment: III - A patient with severe systemic disease. - After reviewing the risks and benefits, the patient was deemed in satisfactory condition to undergo the procedure. - The anesthesia plan was to use general anesthesia. - Immediately prior to administration of medications, the patient was re-assessed for adequacy to receive sedatives. - The heart rate, respiratory rate, oxygen saturations, blood pressure, adequacy of pulmonary ventilation, and response to care were monitored throughout the procedure. - The physical status of the patient was re-assessed after the procedure. After obtaining informed consent, the scope was passed under direct vision. Throughout the procedure, the patient's blood pressure, pulse, and oxygen saturations were monitored continuously. The Duodenoscope was introduced through the mouth, and advanced to the duodenum and used to inject contrast into the bile duct. The ERCP was accomplished without difficulty. The patient tolerated the procedure well. Findings: A monitoring manager film of the abdomen was obtained. Surgical clips, consistent with a previous cholecystectomy, were seen in the area of the right upper quadrant of the abdomen. The esophagus was successfully intubated under direct vision without detailed examination of the pharynx, larynx, and associated structures, and upper GI tract. The upper GI tract was grossly normal. The major papilla was located entirely within a diverticulum. The major papilla was congested. The bile duct was deeply cannulated with the short-nosed traction sphincterotome and guidewire. Contrast was injected. I personally interpreted the bile duct images. Contrast extended to the hepatic ducts. A cholecystectomy had been performed. The biliary orifice was stenotic. This appeared benign. Biliary sphincterotomy was made with a CleverCut distal wire sphincterotome using ERBE electrocautery. There was no post-sphincterotomy bleeding. One 10 Fr by 7 cm biliary stent with a single external flap and a single internal flap was placed 7 cm into the common bile duct (per surgery request to prevent a bile leak). Bile flowed through the stent. The stent was in good position. The endoscope was withdrawn from the patient. Impression: - The major papilla was located entirely within a diverticulum. - The major papilla appeared congested. - Biliary papillary stenosis, benign. - The patient has had a cholecystectomy. - A biliary sphincterotomy was performed. - One biliary stent was placed into the common bile duct. Recommendation: - Avoid aspirin and nonsteroidal anti-inflammatory medicines for 1 week. - Clear liquid diet today. - Observe patient's clinical course following today's ERCP with therapeutic intervention. - Repeat ERCP in 6 weeks to remove stent. Declan Jay D.O. Declan Jay, 02/18/2023 3:00:21 PM This report has been signed electronically. Note Initiated On: 02/18/2023 1:44 PM Number of Addenda: 0 I attest to the content of the Intraoperative Record and orders documented therein, exceptions below {[id number]}
--- NOTE | 2023-02-18 15:20 | Anesthesiology Progress Note ---
Date of Service February 18, 2023 Anesthesia Post Procedure Vital Signs Vital Signs: Temp Pulse Pulse Resp BP Pulse Ox O2 Del Method 02/18/23 12:52 36.9 C 102 H 18 158/93 H 96 Room Air 02/18/23 07:26 36.6 C 100 H 17 142/80 H 95 Room Air 02/18/23 03:27 36.8 C 90 18 138/88 98 Room Air 02/17/23 20:00 Room Air 02/17/23 22:36 37.1 C 102 H 18 157/93 H 97 Room Air 02/17/23 19:03 106 H 16 146/78 H 95 Room Air 02/17/23 18:30 36.9 C 103 H 16 129/71 93 Room Air 02/17/23 17:55 97 H 16 161/85 H 99 Oxymask 02/17/23 18:05 96 H 23 161/91 H 98 Room Air 02/17/23 17:45 95 H 14 159/79 H 99 Oxymask 02/17/23 17:37 36.5 C 103 H 16 148/85 H 97 Oxymask 02/17/23 15:38 37.6 C H 93 H 18 154/84 H 95 Room Air 02/17/23 15:29 36.9 C 93 H 16 144/86 H 94 Room Air O2 Flow Rate 02/18/23 12:52 02/18/23 07:26 02/18/23 03:27 02/17/23 20:00 02/17/23 22:36 02/17/23 19:03 02/17/23 18:30 02/17/23 17:55 2 02/17/23 18:05 02/17/23 17:45 3 02/17/23 17:37 5 02/17/23 15:38 02/17/23 15:29 Pain Intensity Abdomen: Pain Intensity: 6 Transfer of Care Handoff Completed per policy Notes Mental Status: alert / awake / arousable Patient Amnestic to Procedure: Yes Nausea / Vomiting: adequately controlled Pain: adequately controlled Airway Patency, RR, SpO2: stable & adequate BP & HR: stable & adequate Hydration State: stable & adequate Anesthetic Complications: no major complications apparent
--- NOTE | 2023-02-18 15:39 | Fluoroscopy Report ---
INTRAOPERATIVE RADIOGRAPHS CLINICAL HISTORY: ERCP Fluoro time: 21 seconds. Exposure: 7.55 mGy FINDINGS: 5 spot fluoroscopic views of the right upper quadrant from an ERCP procedure are correlated with abdominal ultrasound dated 02/16/2023. A catheter is placed in the common bile duct. This is opa cified with contrast. No intra or extrahepatic biliary duct dilatation is seen. No intraluminal filli ng defects are seen to suggest choledocholithiasis. There is no contrast opacification of the gallbla dder. IMPRESSION: Intraoperative ERCP images as above. See operative report for detailed findings. Electronically signed by: Harry Lockwood M.D. 02/18/2023 3:38 PM
[2023-02-18] MEDS ORDERED: Nursing to Pharmacy Communication SCH (18:15)
[2023-02-18] MEDS: ACETAMINOPHEN 325 MG TAB PO PRN (20:54)
[2023-02-18] MEDS: cefTRIAXone SODIUM 2,000 MG in DEXTROSE 5% 50 ML IV SCH (20:55)
[2023-02-19] MEDS: LACTATED RINGER'S 1,000 ML IV SCH ×3 (00:27→20:44)
[2023-02-19] MEDS: ACETAMINOPHEN 325 MG TAB PO PRN (04:37)
[2023-02-19 06:38] LABS: Basophils # (auto) 0.01 K/uL (0-0.2); Basophils % (auto) 0.1 %; Hematocrit (blood only) 36.1 % (42.0-52.0); Hemoglobin 12.6 g/dl (14.0-18.0); Immature Granulocytes # (auto) 0.09 K/uL (0.01-0.20); Immature Granulocytes % (auto) 1.1 %; Lymphocytes # (auto) 0.56 K/uL (1.2-3.4); Lymphocytes % (auto) 6.6 %; Mean Corpuscular Hemoglobin 32.1 pg (25.0-34.0); Mean Corpuscular Hgb Conc 34.9 g/dL (32.0-36.0); Mean Corpuscular Volume 92.1 fL (80.0-100.0); Mean Platelet Volume 10.1 fL (9.4-12.4); Monocytes # (auto) 0.79 K/uL (0.11-0.59); Monocytes % (auto) 9.3 %; Neutrophils # (auto) 7.05 K/uL (1.40-6.50); Neutrophils % (auto) 82.9 %; Platelet Count 87 K/uL (130-400); RDW Coefficient of Variation 11.8 % (11.5-14.5); RDW Standard Deviation 39.8 fL (36.4-46.3); Red Blood Count 3.92 M/uL (4.70-6.10)
[2023-02-19 06:48] LABS: Albumin Globulin Ratio 1.1 (0.9-2); Albumin Level 2.6 gm/dl (3.4-5.0); BUN Creatinine Ratio 26.6 (10-20); Bilirubin,Total 0.8 mg/dl (0.2-1.0); Calcium 7.8 mg/dl (8.6-10.3); Creatinine Clr Calc Pharmacy 113.9 ml/min; Est GFR (African American) 109.2 ml/min; Est GFR (Non-African American) 94.2 ml/min; Globulin 2.3 gm/dl (2.5-4.0); Magnesium 1.8 mg/dl (1.7-2.4); Potassium 3.9 mmol/L (3.5-5.1); Total Protein 4.9 gm/dl (6.0-8.3)
--- NOTE | 2023-02-19 08:32 | Gastroenterology Progress Note ---
Date of Service February 19, 2023 Assessment & Plan (1) Acute cholecystitis: (2) Transaminitis: Plan: Patient is a 67 years old male who presented with right upper quadrant abdominal pain, associated with nausea and vomiting. Abdominal imaging studies with CT and ultrasound showed signs of cholecystitis and questionable gallbladder neck stone. LFTs are fairly unremarkable, also normal lipase. He was taken to OR 02/[address] Farias. Found to have severe acute gangrenous cholecystitis, abscessed gallbladder and fenestrated subtotal cholecystectomy was completed. RADHA drain in place draining sangeous fluid. He has ERCP by Dr. Jay on 02/18 w biliary sphincterectomy and biliary stent placement to prevent bile leak. Clinically doing well, LFTs normalizing. Noted Urine culture grew enteroccus, blood culture grew Ecoli. - Continue Ceftriaxone and Metronidazole IV antibx - Avoid NSAIDs and high dose ASA for 7 days to prevent post ERCP sphincterectomy - Advance diet as tolerated - F/U ERCP in 6 week's time to be scheduled to remove biliary stent - F/U with Surgery - GI to sign off; pls recall prn Admission and Anticipated Discharge Date Admission Date: February 17, 2023 Supervising Physician Co-Signing Physician Notes I personally saw and evaluated the patient on 02/19/2023 with OLIVIA Roman and agree with her findings and plan of care. he is POD 2 from subtotal cholecystectomy for gangrenous cholecystitis and had ERCP with stent placement prophylactically yesterday. Doing well today. LFTs normal. Blood cultures growing E. coli. On physical exam abdomen has mild diffuse tenderness, surgical incisions c/d/i, RADHA drain with some SS output. From a GI standpoint he is doing well. Will arrange ERCP in 6 weeks to removed biliary stent. Continue IV abx. Trend daily LFTS. Advance diet as tolerated. GI will sign off but please call back with questions. Nancy Simons, DO Gastroenterology and Hepatology Subjective Pt denies abd pain, n/v. Passing flatus. Is tolerating CL diet, wants to try more solid foods. Review of Systems Review of Systems: All systems reviewed & are unremarkable except as noted in HPI & below Physical Exam Constitutional: WD/WN, vitals as above well groomed, cooperative and comfortable Eyes: PERRL, conjunctivae normal, anicteric sclerae ENMT: external ear and nose normal, oropharynx normal Respiratory: normal respiratory effort, lungs clear to auscultation Cardiovascular: RRR, no murmur, no edema Gastrointestinal (Abdomen): Non tender, soft, BS present. RADHA drain to RUQ area w scant sangenous fluid Skin: no rashes, warm and dry no jaundice Psychiatric: A+Ox3, euthymic affect Lymphatic: no lymphedema Results & Data Vital Signs (Past 12 Hours) Vital Signs Temp Pulse Resp BP Pulse Ox O2 Del Method 02/19/23 07:12 36.8 C 68 16 120/68 98 Room Air 02/18/23 22:40 37.0 C 83 18 142/86 H 96 Room Air
[2023-02-19] MEDS: metroNIDAZOLE 500 MG/100 ML BAG IV SCH ×2 (08:45→15:51)
[2023-02-19] MEDS ORDERED: oxyCODONE/ACETAMINOPHEN 5mg/325mg TAB PO PRN (10:11)
--- NOTE | 2023-02-19 10:25 | Surgery Progress Note ---
Date of Service February 19, 2023 Assessment & Plan (1) Acute upper abdominal pain: (2) Acute cholecystitis: Plan POD # 2 s/p laparoscopic subtotal fenestrated cholecystectomy for gangrenous purulent cholecystitis POD # 1 s/p ERCP with biliary stent placement -afebrile, vss - postop pain resolved - leukocytosis resolved - t. bili and lfts normalized - + blood cultures for E.coli Plan: PO Tylenol and Percocet added for pain as needed Advance to low fiber low fat diet Continue IV antibiotics, await ID recs teja drain to bulb suction encourage ambulation incentive spirometry scds for DVT prophlyaxis likely discharge home tomorrow DR. spears has seen and examined patient, agrees with above Admission and Anticipated Discharge Date Admission Date: February 17, 2023 Subjective feeling much better today no abdominal pain no chest pain or shortness of breath no n,v tolerated clear liquids walking hallway urinating without difficulty passing gas and had a bowel movement Physical Exam Constitutional: WD/WN, vitals as above + obese, cooperative and comfortable; no acute distress and not ill appearing Neck: normal visual inspection and trachea midline Respiratory: normal respiratory effort, lungs clear to auscultation Cardiovascular: RRR, no murmur, no edema Gastrointestinal (Abdomen): Inspection/Auscultation: abdomen normal to inspection, + abdominal surgical drain present (serosanguineous) and + hypoactive bowel sounds; abdomen not distended and + abnormal bowel sounds Percussion/Palpation: abdomen soft; abdomen nontender, no guarding and abdomen not rigid Skin: no rashes, warm and dry no jaundice Psychiatric: A+Ox3, euthymic affect Results & Data Vital Signs (Past 12 Hours) Vital Signs Temp Pulse Resp BP Pulse Ox O2 Del Method 02/19/23 07:12 36.8 C 68 16 120/68 98 Room Air 02/18/23 22:40 37.0 C 83 18 142/86 H 96 Room Air Laboratory Results 02/19/23 02/19/23 Range/Units 05:57 05:57 WBC 8.50 (4.8-10.8) K/ul RBC 3.92 L (4.70-6.10) M/uL Hgb 12.6 L (14.0-18.0) g/dl Hct 36.1 L (42.0-52.0) % MCV 92.1 (80.0-100.0) fL MCH 32.1 (25.0-34.0) pg MCHC 34.9 (32.0-36.0) g/dL RDW Std Deviation 39.8 (36.4-46.3) fL RDW Coeff of Ann-Marie 11.8 (11.5-14.5) % Plt Count 87 L (130-400) K/uL MPV 10.1 (9.4-12.4) fL Immature Gran % (Auto) 1.1 % Neut % (Auto) 82.9 % Lymph % (Auto) 6.6 % Webster % (Auto) 9.3 % Eos % (Auto) 0.0 % Baso % (Auto) 0.1 % Neut # (Auto) 7.05 H (1.40-6.50) K/uL Lymph # (Auto) 0.56 L (1.2-3.4) K/uL Webster # (Auto) 0.79 H (0.11-0.59) K/uL Eos # (Auto) 0.00 (0-0.50) K/uL Baso # (Auto) 0.01 (0-0.2) K/uL Immature Gran # (Auto) 0.09 (0.01-0.20) K/uL Sodium 135 L (136-145) mmol/L Potassium 3.9 (3.5-5.1) mmol/L Chloride 105 (98-107) mmol/L Carbon Dioxide 24 (21-32) mmol/L Anion Gap 6 (3-11) BUN 21 (6-23) mg/dl Creatinine 0.79 (0.6-1.4) mg/dl Est Cr Clr Drug Dosing 113.9 ml/min Est GFR ( Amer) 109.2 ml/min Est GFR (Non-Af Amer) 94.2 ml/min BUN/Creatinine Ratio 26.6 H (10-20) Glucose 132 H (70-99(Fasting)) mg/dl Calcium 7.8 L (8.6-10.3) mg/dl Magnesium 1.8 (1.7-2.4) mg/dl Total Bilirubin 0.8 (0.2-1.0) mg/dl AST 24 (13-39) U/L ALT 34 (7-52) U/L Alkaline Phosphatase 94 (34-104) U/L Total Protein 4.9 L (6.0-8.3) gm/dl Albumin 2.6 L (3.4-5.0) gm/dl Globulin 2.3 L (2.5-4.0) gm/dl Albumin/Globulin Ratio 1.1 (0.9-2)
--- NOTE | 2023-02-19 17:47 | Hospitalist Progress Note ---
Date of Service February 19, 2023 Assessment & Plan (1) Sepsis: (2) Bacteremia: (3) Acute cholecystitis: (4) Thrombocytopenia: (5) Hypertension: Plan This is a 67-year-old male with significant past medical history of hypertension who presented to ED secondary to right upper quadrant abdominal pain, nausea vomiting and fever for 3 days. Patient met sepsis criteria upon admission secondary to leukocytosis and tachycardia. Source: Acute cholecystitis He received positive IV antibiotics with Zosyn in ED. Sepsis POA Gram-negative bacteremia - PCR detected E. coli, enterobacterales Severe Gangrenous Acute cholecystitis Elevated LFTs -improving pt admitted to med/surg Antibiotics de-escalated to IV Rocephin and Flagyl POD #2 laparoscopic fenestrated subtotal cholecystectomy in setting of severe acute gangrenous cholecystitis and abscess gallbladder GI placed biliary stent in effort to prevent bile leak. Continue rocephin, flagyl, avoid nsaids x 7 days, F/U ERCP in 6 week's time to be scheduled to remove biliary stent Surgery following - labs improving, post op pain resolved, pain controlled, diet advanced, possible dc home tomorrow Initial blood cultures growing e coli - repeat cx ordered today ID consulted - recommendation for continued therapy, possibly with IV Cipro if patient comfortable with risk profile, final cx pending Will need to discuss to clarify duration of tx with ID although source now controlled Thrombocytopenia lyme/anaplasma thus far negative possibly reactive in setting of sepsis will follow, down to 76 today Anemia hgb downtrending 12.8/37.9 likely dilutional in setting of IVF and pt was likely volume contracted on admission EBL on 15ml will continue to follow closely HTN pt on lisinopril as OP, currently on hold while NPO IV hydralazine prn resume oral lisinopril when approp Abnormal UA pt on IV Rocephin/flagyl await urine culture Hyperglycemia fasting glucose 135 likely iatrogenic 2/2 fluid admin will switch to LR a1c 5.5 DVT ppx: SCDS for now, post operatively will initiate chemical ppx once cleared by surgery; Encouage pt to ambulate in hallway FULL CODE PCP: Shellie - pt wishes to switch to Dr. Pina at discharge A total of 50 minutes was spent with greater than 50% of that time personally viewing all current laboratory work and diagnostic imaging studies obtained in the ED. Additionally, I was able to view the patients past medication reconciliation and history with direct visualization in the patients chart. Included in the time above, a portion of that time was spent assessing the patient while discussing and collaborating with specialists, if necessary, and making medical decision making on treatment plan. All of the above was collaborated with Dr. Dugan. Please see addendum for further details. Admission and Anticipated Discharge Date Admission Date: February 17, 2023 Supervising Physician Co-Signing Physician Notes Patient seen and examined at bedside as a follow-up of sepsis POA, gram-negative bacteremia, severe gangrenous acute cholecystitis status post laparoscopic fenestrated subtotal cholecystectomy. Patient doing better and he is hemodynamically stable. Continue with current antibiotic, ID evaluated, appreciate recommendation. Likely DC tomorrow with surgery clearance. On examination, patient on room air, NAD, abdomen with laparoscopic portsclean and dry, healthy healing. No abdominal tenderness on superficial palpation. RADHA drain with minimal serosanguineous collection noted. Rest of the examination as above. I have seen and examined the patient and have discussed the case with the provider above. I agree with the assessment and plan as stated. Subjective Seen and examined in 354 bed 1. Feeling much better this morning. No more nausea or abdominal pain. Tolerating diet without issue. Had a bowel movement and is even ambulating in the halls. Denies any fever, chills, lightheadedness, headache, chest pain, shortness of breath, nausea,vomiting, dysuria or diarrhea. Review of Systems Review of Systems: At least ten systems reviewed and negative except as noted in the HPI. Physical Exam Physical Exam: Gen: WD/WN, NAD, sitting up in bed, A&Ox3 HEENT: Normocephalic, atraumatic, conjunctivae moist, sclerae anicteric, mucous membranes moist Lung: Clear to Auscultation bilaterally, no wheezes/rales/rhonchi Heart: Regular rate, regular rhythm, no murmurs, rubs, or gallops Abdomen: Soft with mild distention, non-tender, +BS x 4, laparoscopic incisions healing Extremities: no edema Skin: Warm, no rash Results & Data Results & Data Vital Signs (Past 12 Hours) Vital Signs Temp Pulse Resp BP Pulse Ox O2 Del Method 02/19/23 14:12 36.8 C 84 16 127/72 96 Room Air 02/19/23 10:46 Room Air 02/19/23 10:31 36.7 C 83 17 135/70 96 Room Air 02/19/23 07:12 36.8 C 68 16 120/68 98 Room Air Laboratory Results Short CBC 02/19/23 Range/Units 05:57 WBC 8.50 (4.8-10.8) K/ul Hgb 12.6 L (14.0-18.0) g/dl Hct 36.1 L (42.0-52.0) % Plt Count 87 L (130-400) K/uL BMP 02/19/23 05:57 Sodium 135 L Potassium 3.9 Chloride 105 Carbon Dioxide 24 BUN 21 Creatinine 0.79 Glucose 132 H Calcium 7.8 L Liver Function 02/19/23 Range/Units 05:57 Total Bilirubin 0.8 (0.2-1.0) mg/dl AST 24 (13-39) U/L ALT 34 (7-52) U/L Alkaline Phosphatase 94 (34-104) U/L Albumin 2.6 L (3.4-5.0) gm/dl Diagnostic Findings Abdomen/Pelvis CT 02/16/23 19:09 Exam(s): CT ABDOMEN + PELVIS With Contrast IV Amt: 84 ml optiray EXAM: CT Abdomen and Pelvis With Intravenous Contrast CLINICAL HISTORY: Reason for exam: abd pain, n/v. TECHNIQUE: Axial computed tomography images of the abdomen and pelvis with intravenous contrast. Automated exposure control was utilized for the study. A dose lowering technique was utilized adhering to the principles of ALARA. CONTRAST: Patient received 84 ml optiray of IV contrast COMPARISON: No relevant prior studies available. FINDINGS: Lung bases: Trace amount of subsegmental atelectasis in the right lung base. ABDOMEN: Liver: There is mild fatty infiltration of the liver. No focal liver lesion is seen. Gallbladder and bile ducts: The gallbladder is mildly dilated measuring 11 cm long axis with slight wall thickening and surrounding inflammation indicate acute cholecystitis. Pancreas: Unremarkable. No mass. No ductal dilation. Spleen: Unremarkable. No splenomegaly. Adrenals: Unremarkable. No mass. Kidneys and ureters: Simple 3 cm cyst extending off the lower pole of the left kidney. No follow-up is necessary. No hydronephrosis. Stomach and bowel: 6.5 cm of stool in the cecum suggesting mild constipation. The appendix is normal. There is diverticulosis of the left and sigmoid colon. No acute inflammatory changes are seen involving the bowel. No obstruction. No mucosal thickening. PELVIS: Appendix: See above. Bladder: The urinary bladder is mostly decompressed but otherwise unremarkable. Reproductive: Unremarkable as visualized. ABDOMEN and PELVIS: Intraperitoneal space: Unremarkable. No free air. No significant fluid collection. Bones/joints: Mild degenerative changes throughout the spine. No acute fracture or subluxation is seen. Soft tissues: Unremarkable. Vasculature: Unremarkable. No abdominal aortic aneurysm. Lymph nodes: Unremarkable. No enlarged lymph nodes. IMPRESSION: 1. The gallbladder is mildly dilated measuring 11 cm long axis with slight wall thickening and surrounding inflammation indicate acute cholecystitis. 2. 6.5 cm of stool in the cecum suggesting mild constipation. The appendix is normal. There is diverticulosis of the left and sigmoid colon. No acute inflammatory changes are seen involving the bowel. Electronically signed by: Misha Dey MD 02/16/23 21:06 PM Chest X-Ray 02/16/23 19:09 XR chest 1V portable HISTORY: 67 years-old Male ap, n/v acute chest pain with nausea and vomiting COMPARISON: CT abdomen and pelvis 02/16/2023 TECHNIQUE: AP view of the chest FINDINGS: Cardiac silhouette is moderately enlarged. Mild right hemidiaphragmatic elevation. Mild subsegmental bibasilar atelectasis. No pneumothorax, large pleural effusion or lobar airspace consolidation. Bones appear grossly intact. IMPRESSION: Cardiomegaly without acute process. ACT 112: Negative or not required by law. The above report was generated using voice recognition software. It may contain grammatical, syntax or spelling errors. Electronically signed by: Devin Castellano M.D. 02/17/2023 7:29 AM Gallbladder Ultrasound 02/16/23 21:41 Exam(s): US GALLBLADDER EXAM: US Abdomen Limited, Gallbladder CLINICAL HISTORY: Reason for exam: abd pain eval ?cholecystitis. TECHNIQUE: Real-time ultrasound of the right upper quadrant with image documentation. COMPARISON: CT scan from February 16, 2023 FINDINGS: Liver: The liver measures 15.5 cm with mild fatty infiltration. No focal liver lesion is seen. Gallbladder: The gallbladder is mildly dilated measuring 10.4 cm long axis. There is mild wall thickening. No shadowing stones are identified. There is sludge dependently. Questionable gallstone in the gallbladder neck. Common bile duct: Obscured. Pancreas: The pancreas is mostly obscured. IMPRESSION: The gallbladder is mildly dilated measuring 10.4 cm long axis. There is mild wall thickening. No shadowing stones are identified. There is sludge dependently. Questionable gallstone in the gallbladder neck. Sonographic Mason sign could not be determined due to recent pain medication administration. Electronically signed by: Misha Dey MD 02/17/23 00:07 AM Endo Retro Cholangiopancreatogram 02/18/23 13:30 INTRAOPERATIVE RADIOGRAPHS CLINICAL HISTORY: ERCP Fluoro time: 21 seconds. Exposure: 7.55 mGy FINDINGS: 5 spot fluoroscopic views of the right upper quadrant from an ERCP procedure are correlated with abdominal ultrasound dated 02/16/2023. A catheter is placed in the common bile duct. This is opacified with contrast. No intra or extrahepatic biliary duct dilatation is seen. No intraluminal filling defects are seen to suggest choledocholithiasis. There is no contrast opacification of the gallbladder. IMPRESSION: Intraoperative ERCP images as above. See operative report for detailed findings. Electronically signed by: Harry Lockwood M.D. 02/18/2023 3:38 PM
[2023-02-19] MEDS: cefTRIAXone SODIUM 2,000 MG in DEXTROSE 5% 50 ML IV SCH (20:02)
[2023-02-20] MEDS: metroNIDAZOLE 500 MG/100 ML BAG IV SCH ×2 (00:02→07:13)
[2023-02-20] MEDS: LACTATED RINGER'S 1,000 ML IV SCH ×2 (01:44→06:20)
[2023-02-20 04:54] LABS: Babesia microti DNA Not Detected (Not Detected)
[2023-02-20 07:48] LABS: Hematocrit (blood only) 37.4 % (42.0-52.0); Hemoglobin 12.8 g/dl (14.0-18.0); Mean Corpuscular Hemoglobin 31.5 pg (25.0-34.0); Mean Corpuscular Hgb Conc 34.2 g/dL (32.0-36.0); Mean Corpuscular Volume 92.1 fL (80.0-100.0); Mean Platelet Volume 9.8 fL (9.4-12.4); Platelet Count 118 K/uL (130-400); RDW Coefficient of Variation 11.8 % (11.5-14.5); RDW Standard Deviation 40.1 fL (36.4-46.3); Red Blood Count 4.06 M/uL (4.70-6.10); White Blood Count 8.38 K/ul (4.8-10.8)
[2023-02-20 08:07] LABS: BUN Creatinine Ratio 24.7 (10-20); Calcium 7.7 mg/dl (8.6-10.3); Creatinine Clr Calc Pharmacy 101.1 ml/min; Est GFR (Non-African American) 89.7 ml/min; Potassium 3.8 mmol/L (3.5-5.1)
--- NOTE | 2023-02-20 08:25 | Surgery Progress Note ---
Date of Service February 20, 2023 Assessment & Plan (1) Acute upper abdominal pain: (2) Acute cholecystitis: Plan POD # 3 s/p laparoscopic subtotal fenestrated cholecystectomy for gangrenous purulent cholecystitis POD # 2 s/p ERCP with biliary stent placement -afebrile, vss - postop pain resolved - leukocytosis resolved - t. bili and lfts normalized - + blood cultures for E.coli Plan: Okay from surgical standpoint for discharge at home discharge instructions reviewed Can transition to oral cipro and flagyl on discharge per ID recs remove teja drain prior to discharge follow-up in surgery office in [address] Farias has seen and examined pt, agrees with above. Admission and Anticipated Discharge Date Admission Date: February 17, 2023 Subjective feeling good no abdominal pain tolerating diet no n,v passing gas and urinating without difficulty ready to go home Physical Exam Constitutional: WD/WN, vitals as above + obese, cooperative and comfortable; no acute distress and not ill appearing Neck: normal visual inspection and trachea midline Respiratory: normal respiratory effort; no respiratory distress Gastrointestinal (Abdomen): Inspection/Auscultation: abdomen normal to inspection, normal bowel sounds, + abdominal surgical incision (clean, dry, intact with Dermabond) and + abdominal surgical drain present (minimal serosanguineous drainage); abdomen not distended Percussion/Palpation: abdomen soft; abdomen nontender, no guarding and abdomen not rigid Skin: no rashes, warm and dry no jaundice Psychiatric: A+Ox3, euthymic affect Results & Data Vital Signs (Past 12 Hours) Vital Signs Temp Pulse Resp BP Pulse Ox O2 Del Method 02/20/23 07:32 37 C 78 16 151/80 H 96 Room Air 02/19/23 22:59 Room Air 02/19/23 21:04 36.9 C 86 16 128/76 96 Room Air Laboratory Results 02/20/23 02/20/23 02/17/23 Range/Units 07:23 07:23 05:51 WBC 8.38 (4.8-10.8) K/ul RBC 4.06 L (4.70-6.10) M/uL Hgb 12.8 L (14.0-18.0) g/dl Hct 37.4 L (42.0-52.0) % MCV 92.1 (80.0-100.0) fL MCH 31.5 (25.0-34.0) pg MCHC 34.2 (32.0-36.0) g/dL RDW Std Deviation 40.1 (36.4-46.3) fL RDW Coeff of Ann-Marie 11.8 (11.5-14.5) % Plt Count 118 L (130-400) K/uL MPV 9.8 (9.4-12.4) fL Sodium 136 (136-145) mmol/L Potassium 3.8 (3.5-5.1) mmol/L Chloride 107 (98-107) mmol/L Carbon Dioxide 25 (21-32) mmol/L Anion Gap 4 (3-11) BUN 22 (6-23) mg/dl Creatinine 0.89 (0.6-1.4) mg/dl Est Cr Clr Drug Dosing 101.1 ml/min Est GFR ( Amer) 104.0 ml/min Est GFR (Non-Af Amer) 89.7 ml/min BUN/Creatinine Ratio 24.7 H (10-20) Glucose 90 (70-99(Fasting)) mg/dl Calcium 7.7 L (8.6-10.3) mg/dl Babesia microti DNA PCR Not Detected (Not Detected)
--- NOTE | 2023-02-20 12:46 | Discharge Summary ---
Discharge Summary Date of Service February 20, 2023 Notes For Next Care Provider E. coli bacteremia 2/2 to severe gangrenous acute cholecystitis. S/p laparoscopic fenestrated subtotal cholecystectomy by Dr. Farias and ERCP with biliary stent placement by Dr. Jay Medication Changes From Visit Discharged on Cipro/Flagyl to complete 2 week total course of abx per ID. General surgery and GI follow up. Admission HPI Per Admitting Provider A 67-year-old male with past medical history significant for hypertension, comes with abdominal pain going on since last Thursday afternoon. It is 10/10 in severity, associated with nausea, vomiting, has some fever and in the ER, found to have cholecystitis. Currently, resting comfortably, requesting for pain medication, hemodynamically stable. Denies any chest pain, no shortness of breath, no cough, no headache, no earache, no runny nose. Normal bowel and bladder movements. Admission Exam Per Admitting Provider GENERAL: The patient is obese, not in acute distress. VITAL SIGNS: Temperature 36.5, pulse 105, respiratory rate 20, blood pressure 114/71, oxygen 97% on room air. HEENT: Pupils equal, round and reactive to light. Oral mucosa moist. NECK: No JVD or neck masses. CARDIOVASCULAR: S1 and S2 heard. Regular rate and rhythm. No murmur, no gallop. RESPIRATORY SYSTEM: Normal AP diameter. No accessory muscle use. No wheezing, no crackles. ABDOMEN: Soft, bowel sounds present. Tenderness in right upper quadrant region . No guarding, no rigidity, no distention. CENTRAL NERVOUS SYSTEM: Cranial nerves II-XII grossly intact, nonfocal. EXTREMITIES: No edema, no erythema. Principal Dx & Hospital Course #1 = Principal Diagnosis (1) Sepsis: (2) Bacteremia: (3) Acute cholecystitis: (4) Thrombocytopenia: (5) Hypertension: Plan This is a 67-year-old male with significant past medical history of hypertension who presented to ED secondary to right upper quadrant abdominal pain, nausea vomiting and fever for 3 days and was found to have E. coli bacteremia secondary to severe gangrenous acute cholecystitis. CT abd/pelvis with the gallbladder is mildly dilated measuring 11 cm long axis with slight wall thickening and surrounding inflammation indicate acute cholecystitis. Underwent laparoscopic fenestrated subtotal cholecystectomy by Dr. Farias and ERCP with biliary stent placement by Dr. Jay. Patient significantly improved postoperatively with resolution of abdominal pain and other GI symptoms. Blood culture grew E. coli with repeat cultures pending. Per ID recommendations, will transition to oral ciprofloxacin and Flagyl at time of discharge for 14 days total treatment. Patient to follow-up with general surgery in 2 weeks and GI in 6 weeks for stent removal. Instructed to avoid aspirin and NSAIDs for 1 week following stent placement. Hgb stabilized at 12. Noted to have thrombocytopenia with platelet count initially 89 in setting of sepsis that has improved to 118. Continue to monitor in outpatient setting. Noted to have hyperglycemia during admission with fasting glucose of 135 but A1c within normal range of 5.5. Patient is comfortable and hemodynamically stable at time of discharge. Discharge Exam Gen: WD/WN, NAD, sitting up in bed, A&Ox3 HEENT: Normocephalic, atraumatic, conjunctivae moist, sclerae anicteric, mucous membranes moist Lung: Clear to Auscultation bilaterally, no wheezes/rales/rhonchi Heart: Regular rate, regular rhythm, no murmurs, rubs, or gallops Abdomen: Soft with mild distention, non-tender, +BS x 4, laparoscopic incisions healing Extremities: no edema Skin: Warm, no rash Updated Medication List Medication Instructions Recorded Confirmed Type lisinopril 10 mg tablet 10 mg PO DAILY 02/16/23 02/16/23 History magnesium citrate 100 mg tablet 400 mg PO DAILY 02/17/23 02/17/23 History omeprazole 20 mg capsule,delayed 20 mg PO DAILY 02/17/23 02/17/23 History release ciprofloxacin HCl 500 mg tablet 500 mg PO BID #20 tabs 02/20/23 Rx (Cipro) metronidazole 500 mg tablet 500 mg PO Q8H #30 tabs 02/20/23 Rx Hospital Stay Data Consultations 02/16/23 22:20 ED Decision to Admit Stat 02/17/23 08:00 Consult Gastroenterology Routine Consult General Surgery Routine 02/18/23 11:54 Consult Infectious Diseases Routine Procedures Performed Operation Date: 02/18/23 13:30 Actual Procedures p Endoscopic Retrograde Cholangiopancreatography - Declan Jay, Diagnostic Imagining Performed 02/16/23 19:09 CT abd pelvis IV con only Stat 02/16/23 21:41 US gallbladder Stat 02/18/23 13:30 FL ERCP biliary ductal Routine Pending Results Patient Have Any Pending Studies at Discharge: No Discharge Instructions Given to Patient (Per Discharging Provider) You were admitted with an infected gall bladder and have had surgical removal. A biliary stent was also placed to prevent a bile leak. MEDICATION CHANGES: Continue Ciprofloxacin 2x/day and Flagyl 3x/day (antibiotics) for 10 days Please take probiotic at home to help prevent diarrhea Avoid aspirin, ibuprofen or other NSAIDs for 1 week RECOMMENDATIONS FOR FOLLOW-UP: Follow up with new PCP for hospital follow-up as above Follow up with Dr. Farias of general surgery in 2 weeks. Other post-surgical instructions mentioned below Follow up with Dr. Jay of GI in 6 weeks as scheduled for stent removal OTHER INSTRUCTIONS: Seek medical attention if you have: * temperature above 101 * chest pain or trouble breathing * abdominal pain, nausea, vomiting * diarrhea, dark stools or bloody stools * any unanswered questions or concerns Call 911 if symptoms are severe. Please take good care of yourself. Call if you have any questions or problems. You can reach a [facility] hospitalist on duty at [facility] 24 hours a day by calling [phone]. Total Time Total Time Spent Total Time Spent (In Minutes): 75 Supervising Physician Co-Signing Physician Notes Patient seen and examined at bedside as a follow-up of sepsis POA, gram-negative bacteremia, severe gangrenous acute cholecystitis status post laparoscopic fenestrated subtotal cholecystectomy. Patient doing better and he is hemodynamically stable. Continue with current antibiotic, ID evaluated, appreciate recommendation. DC w/ surgical clearance/RADHA drain mx ?? out. On examination, patient on room air, NAD, abdomen with laparoscopic portsclean and dry, healthy healing. No abdominal tenderness on superficial palpation. RADHA drain with minimal serosanguineous collection noted. Rest of the examination as above. I have seen and examined the patient and have discussed the case with the provider above. I agree with the assessment and plan as stated.
== END 2023-02-20 13:55 | disposition home or self-care (01) | DRG 854 ==
LOC: ED 17:25 → 3W 02-17 02:34 → SUATTDRO 02-17 02:34 → 3W 02-17 04:09
DX: N39.0 Urinary tract infection, site not specified; K81.0 Acute cholecystitis; Z87.891 Personal history of nicotine dependence; E66.9 Obesity, unspecified; Z96.653 Presence of artificial knee joint, bilateral; K57.50 Diverticulosis of both small and large intestine without perforation or abscess without bleeding; R73.9 Hyperglycemia, unspecified; B96.20 Unspecified Escherichia coli [E. coli] as the cause of diseases classified elsewhere; R74.01 Elevation of levels of liver transaminase levels; Z68.29 Body mass index [BMI] 29.0-29.9, adult; K91.89 Other postprocedural complications and disorders of digestive system; A41.51 Sepsis due to Escherichia coli [E. coli]; D69.6 Thrombocytopenia, unspecified; I10 Essential (primary) hypertension; Y83.8 Other surgical procedures as the cause of abnormal reaction of the patient, or of later complication, without mention of misadventure at the time of the procedure; K21.9 Gastro-esophageal reflux disease without esophagitis; Y92.239 Unspecified place in hospital as the place of occurrence of the external cause